=== PATIENT | male | born 1945 | race Caucasian/White ===

== ENCOUNTER → 2017-05-19 | Outpatient (CLI) | payer OTHER ==
[2016-06-09 23:53] VITALS: BP 128/67
[~2017-05-19] MED LIST: NS 100 ML IV 100 ML IV ONE
[2017-05-19 08:21] LABS: CREATININE 1.6 mg/dL (0.70-1.30)
--- NOTE | 2017-05-22 10:43 | CT ---
HISTORY: Atrial fibrillation. Pain to surgical site from 1 year above the navel area. Prior surgery f or ulcer 1 year ago Study: CT abdomen and pelvis with IV and oral contrast Comparison: 06/09/2016 Technique: Multiple axial images of the abdomen and pelvis were obtained from the lung bases to the pubic symphy sis during the administration of IV contrast. Oral contrast agents were administered. Coronal and sa gittal images are also reviewed. Dose reduction techniques utilized automatic exposure control. Findings: There is a tiny amount of left pleural effusion present. No consolidation is seen. The heart is enlar ged with artifacts present from pacemaker leads. There is a wide rectus diastases present in the uppe r abdomen which is seen to contain a portion of the transverse colon. This constitutes a moderately l arge ventral hernia. No abscess or fluid collection is seen in the abdomen or pelvic regions. The lisa er, spleen, pancreas, kidneys, and adrenal glands are unremarkable in their CT appearance. The gallbl adder is unremarkable in its CT appearance. There is a very small intrarenal abdominal aortic aneurys m which measures about 2.8 cm in maximum diameter. This extends for a length of about 3.3 cm. No evid ence of leakage is seen. No significant mesenteric lymphadenopathy or stranding can be observed. No free fluid or free air is seen within the abdomen. No bowel wall thickening or bowel dilatation is present. The colon is unremarkable. Specifically, there is no diverticulosis noted within the sigmo id colon. The urinary bladder wall appears thickened. No mass or stone is seen. There is degenerativ e disc disease present at multiple lower thoracic and upper lumbar regions. IMPRESSION: Large upper midline ventral hernia containing a portion of the transverse colon. Measures about 8 cm in diameter. No obstruction is seen. No mass, adenopathy or fluid is identified. Reported By:
== END | disposition home or self-care (01) ==
LOC: RAD 07:34
PROVIDERS: ATTEND Internal Medicine
DX: R10.84 Generalized abdominal pain (principal); K43.9 Ventral hernia without obstruction or gangrene
CPT/HCPCS: 36415; 74160; 82565; 84520; A4222

== ENCOUNTER → 2017-08-21 | Outpatient (CLI) | payer OTHER ==
[2016-06-09 23:53] VITALS: BP 128/67
--- NOTE | 2017-08-21 17:00 | VAS ---
Examination: Right leg DVT study Clinical History: Right leg pain and swelling. Technique: Duplex Doppler ultrasound utilizing yo scale imaging and spectral analysis with color/du plex imaging was used to evaluate the deep venous system of the right leg from the calf to the groin. Comparison: None available. Findings: There is normal flow, compressibility and augmentation of the common femoral-, superficial femoral-, and popliteal veins. There is no sonographic evidence of a deep venous thrombosis in the right leg. Impression: 1. There is no sonographic evidence of a deep venous thrombosis in the right leg. Reported By:
== END ==
LOC: RAD 15:59
PROVIDERS: ATTEND Internal Medicine
DX: R60.0 Localized edema (principal); M79.604 Pain in right leg; Z86.711 Personal history of pulmonary embolism
CPT/HCPCS: 93971

== ENCOUNTER 2017-11-16 15:11 | Emergency (ER) | payer OTHER ==
[2017-11-16 15:15] VITALS: BP 135/78; BMI 29.2
--- NOTE | 2017-11-16 15:37 | DR.ABDMALE ---
HPI - Time seen Time seen: 16:37 - PCP Primary Care Physician: VALENTIN - HPI comment HPI Comment: PAIN ASSOCIATED WITH NAUSEA. BM TODAY. NO FEVER OR DYSURIA. HAVE HAD SEVERAL ABDOMINAL SURGERY IN THE PAST. - Complaint Chief Complaint Doctors Comments: INCREASING ABDOMINAL PAIN TIMES ONE WEEK. Chief Complaint:: PT C/O ABD PAIN THAT HAS BEEN GOING ON FOR A FEW WEEKS. PT STATES HE HAS A EXTENSIVE HISTORY OF ABD PROBLEMS AND SURGERIES. PT HAS FALLEN WITHIN THE PAST WEEK. - Reviewed Nurses Notes Review: Yes - Mode of arrival Mode of Arrival: Ambulatory - Timing Onset of Chief Complaint: 11/09/17 Came on: Gradually - Duration Duration: Constant Duration: Days - Location Location: Diffuse - Severity Severity: Moderate - Quality Quality: Cramping - Context Onset: Gradually History of: Abdominal surgery, Bowel obstruction, Similar pain (dx) - Modifying factors Worsening Factors: Nothing Improving Factors: Nothing - Associated signs and symptoms Associated Signs and Symptoms: Nausea PMH - PMH Past Medical History: Yes Past Medical History: Anxiety, Coronary Artery Disease, Diabetes, Dyslipidemia, GERD, Hypertension, Hypothyroidism Past Surgical History: Yes Surgical History: Abdominal Surgery, Other - Family History History of Family Medical Conditions: Yes Family Medical History: Hypertension - Social History Does any household member use tobacco: No Alcohol Use: None Do you use any recreational Drugs:: No Lives With: Family Lives Where: Home - infectious screening In the last 2 months have you had wt loss of >10#?: NO Have you had fever, night sweats or hemotysis?: No Have you traveled outside the country in the last 6 months?: No Isolation: Standard ROS - Review of Systems Constitutional: No Symptoms Reported Eyes: No Symptoms Reported ENTM: No Symptoms Reported Respiratoy: No Symptoms Reported Cardiovascular: No Symptoms Reported Gastrointestinal/Abdominal: Abdominal Pain, Nausea Genitourinary: No Symptoms Reported. negative: Dysuria, Frequency, Hematuria Neurological: No Symptoms Reported Musculoskeletal: Back Pain Integumentary: No Symptoms Reported Hematologic/Lymphatic: No Symptoms Reported Endocrine: No Symptoms Reported All Other Systems: Reviewed and Negative PE - Vital Signs Vital Signs: Temp Pulse Resp BP BP Pulse Ox 11/16/17 15:12 98.3 F 61 20 135/78 94 L 06/09/16 23:52 128/67 128/67 - General Limitations: No Limitations General Appearance: Alert - Head Head Exam: Normal Inspection - Eyes Eye exam: Normal Appearance - ENT ENT Exam: Normal External Ear Exam - Neck Neck Exam: Trachea Midline - Chest Chest Inspection: Symmetric Chest Wall Rise - Respiratory Respiratory Exam: Normal Lung Sounds Bilat Respiratory Exam: Bilateral Clear to Auscultation - Cardiovascular Cardiovascular Exam: Regular Rate, Normal Rhythm, Normal Heart Sounds - Abdominal Exam Abdominal Exam: Normal Bowel Sounds, Soft, Tenderness Abdominal Tenderness: Diffuse, Moderate - Rectal Rectal Exam: Deferred - Back Back Exam: Normal Inspection - Extremeties Extremities Exam: Normal Inspection - Exam: Male: Deferred - Neurologic Neurological Exam: Alert, Oriented X3. negative: Motor Sensory Deficit - Psychiatric Psychiatric Exam: Normal Affect, Normal Mood - Skin Skin Exam: Normal Color MDM - Additional Information Obtained From Additional information provided by: Family - Differential Diagnosis Differential Diagnosis: Bowel Obstruction, Diverticular disease, Gastritus/PUD, Pancreatitis, Urinary tract infection, Urolithiasis Course - Treatment Treatment: SEE ORDERS. - Education/Counseling Education/Counseling: Patient, Family, Education Educated On: Diagnosis, Needs for Follow Up ROR - Labs Reviewed Laboratory Results Reviewed?: Yes Result Diagrams: 11/16/17 15:55 11/16/17 15:55 Laboratory: WBC 7.0 X10^3/uL (3.6-10.0) 11/16/17 15:55 RBC 4.19 X10^6/uL (4.7-6.0) L 11/16/17 15:55 Hgb 12.1 g/dL (13.5-18.0) L 11/16/17 15:55 Hct 35.6 % (42.0-54.0) L 11/16/17 15:55 MCV 85.0 fL (80.0-100.0) 11/16/17 15:55 MCH 28.8 pg (27.0-34.0) 11/16/17 15:55 MCHC 33.9 g/dL (33.0-35.0) 11/16/17 15:55 RDW 14.4 % (11.6-16.5) 11/16/17 15:55 Plt Count 170 X10^3/uL (150.0-450.0) 11/16/17 15:55 MPV 8.8 fL (7.4-11.0) 11/16/17 15:55 Neut % (Auto) 57.0 % (42.0-75.0) 11/16/17 15:55 Lymph % (Auto) 30.0 % (21.0-51.0) 11/16/17 15:55 [place] % (Auto) 8.7 % (0.0-13.0) 11/16/17 15:55 Eos % (Auto) 3.0 % (0.9-2.9) H 11/16/17 15:55 Baso % (Auto) 1.3 % (0.2-1.0) H 11/16/17 15:55 Neut # (Auto) 4.0 x10^3/uL (2.2-4.8) 11/16/17 15:55 Lymph # (Auto) 2.1 X10^3/uL (1.3-2.9) 11/16/17 15:55 [place] # (Auto) 0.6 x10^3/uL (0.3-0.8) 11/16/17 15:55 Eos # (Auto) 0.2 x10^3/uL (0.0-0.2) 11/16/17 15:55 Baso # (Auto) 0.1 X10^3/uL (0.0-0.1) 11/16/17 15:55 Absolute Nucleated RBC 0.0 /100WBC 11/16/17 15:55 Sodium 139 mmol/L (136-145) 11/16/17 15:55 Corrected Sodium TNP 11/16/17 15:55 Potassium 4.6 mmol/L (3.5-5.1) 11/16/17 15:55 Chloride 104 mmol/L (98-107) 11/16/17 15:55 Carbon Dioxide 29.3 mmol/L (21-32) 11/16/17 15:55 BUN 45 mg/dL (7-18) H 11/16/17 15:55 Creatinine 1.83 mg/dL (0.70-1.30) H 11/16/17 15:55 Est GFR (MDRD) Af Amer 47 (>60) L 11/16/17 15:55 Est GFR (MDRD) Non-Af 39 (>60) L 11/16/17 15:55 Glucose 88 mg/dL (65-99) 11/16/17 15:55 Calcium 8.7 mg/dL (8.5-10.1) 11/16/17 15:55 Corrected Calcium TNP 11/16/17 15:55 Total Bilirubin 0.40 mg/dL (0.2-1.0) 11/16/17 15:55 AST 25 Units/L (15-37) 11/16/17 15:55 ALT 25 Units/L (12-78) 11/16/17 15:55 Alkaline Phosphatase 35 Units/L (46-116) L 11/16/17 15:55 Total Protein 7.9 g/dL (6.4-8.2) 11/16/17 15:55 Albumin 4.1 g/dL (3.4-5.0) 11/16/17 15:55 Globulin 3.8 g/dL (2.5-4.5) 11/16/17 15:55 Albumin/Globulin Ratio 1.1 Ratio (1.1-2.1) 11/16/17 15:55 Amylase 54 Units/L (25-115) 11/16/17 15:55 Lipase 175 Units/L (73-393) 11/16/17 15:55 Specimen Type Random urine 11/16/17 16:07 Urine Color Yellow (YELLOW) 11/16/17 16:07 Urine Appearance Clear (CLEAR) 11/16/17 16:07 Urine pH 5.0 (5.0 - 8.0) 11/16/17 16:07 Ur Specific [place] 1.020 (1.000-1.030) 11/16/17 16:07 Urine Protein Negative (NEGATIVE) 11/16/17 16:07 Urine Glucose (UA) Negative (NEGATIVE) 11/16/17 16:07 Urine Ketones Negative (NEGATIVE) 11/16/17 16:07 Urine Occult Blood Negative (NEGATIVE) 11/16/17 16:07 Urine Nitrite Negative (NEGATIVE) 11/16/17 16:07 Urine Bilirubin Negative (NEGATIVE) 11/16/17 16:07 Urine Urobilinogen Normal (NORMAL) 11/16/17 16:07 Ur Leukocyte Esterase Negative (NEGATIVE) 11/16/17 16:07 - XRAY XRAY Interpreted by: Radiologist XRAY Findings: REPORT DISCUSS WITH PATIENT. - Diagnosis Discharge Problem: Abdominal pain Qualifiers: Abdominal location: generalized Qualified Code(s): R10.84 - Generalized abdominal pain - Discharge Plan Disposition: 01 HOME, SELF-CARE Condition: Stable - Follow ups/Referrals Follow ups/Referrals: Mariela Mackay [Primary Care Provider] - 11/17/17 - Instructions Instructions: Abdominal Pain, Adult, [id number] Additional Instructions: RETURN TO ED IF WORSE.
[2017-11-16 16:04] LABS: BASOPHILS # (AUTO) 0.1 X10^3/uL (0.0-0.1); BASOPHILS % (AUTO) 1.3 % (0.2-1.0); EOSINOPHILS # (AUTO) 0.2 x10^3/uL (0.0-0.2); HEMATOCRIT 35.6 % (42.0-54.0); HEMOGLOBIN 12.1 g/dL (13.5-18.0); LYMPHOCYTES # (AUTO) 2.1 X10^3/uL (1.3-2.9); MEAN CORPUSCULAR HEMOGLOBIN 28.8 pg (27.0-34.0); MEAN CORPUSCULAR HGB CONC 33.9 g/dL (33.0-35.0); MEAN PLATELET VOLUME 8.8 fL (7.4-11.0); MONOCYTES # (AUTO) 0.6 x10^3/uL (0.3-0.8); MONOCYTES % (AUTO) 8.7 % (0.0-13.0); PLATELET COUNT 170 X10^3/uL (150.0-450.0); RED BLOOD COUNT 4.19 X10^6/uL (4.7-6.0); RED CELL DISTRIBUTION WIDTH 14.4 % (11.6-16.5)
[2017-11-16 16:14] LABS: BILIRUBIN,URINE NEGATIVE (NEGATIVE); BLOOD/HEMOGLOBIN,URINE NEGATIVE (NEGATIVE); GLUCOSE, URINE NEGATIVE (NEGATIVE); KETONES,URINE NEGATIVE (NEGATIVE); LEUKOCYTE ESTERASE ,URINE NEGATIVE (NEGATIVE); NITRITES,URINE NEGATIVE (NEGATIVE); PROTEIN,URINE NEGATIVE (NEGATIVE); UROBILINOGEN,URINE NORMAL (NORMAL)
[2017-11-16 16:15] LABS: ALANINE AMINOTRANSFERASE 25 Units/L (12-78); ALBUMIN 4.1 g/dL (3.4-5.0); ALKALINE PHOSPHATASE 35 Units/L (46-116); AMYLASE 54 Units/L (25-115); ASPARTATE AMINO TRANSFERASE 25 Units/L (15-37); BLOOD UREA NITROGEN 45 mg/dL (7-18); CALCIUM 8.7 mg/dL (8.5-10.1); CARBON DIOXIDE 29.3 mmol/L (21-32); CHLORIDE 104 mmol/L (98-107); CREATININE 1.83 mg/dL (0.70-1.30); LIPASE 175 Units/L (73-393); SODIUM 139 mmol/L (136-145); TOTAL PROTEIN 7.9 g/dL (6.4-8.2); eGFR BLACK RACES 47 (>60); eGFR NON BLACK RACES 39 (>60)
[2017-11-16 16:16] LABS: APPEARANCE,URINE CLEAR (CLEAR); COLOR,URINE YELLOW (YELLOW)
--- NOTE | 2017-11-16 16:34 | CT ---
CT ABDOMEN AND PELVIS WITHOUT CONTRAST CLINICAL HISTORY: 72-year-old male with abdominal pain COMPARISON: CT abdomen and pelvis 05/19/2017. TECHNIQUE: Multiple contiguous computed tomographic axial images of the abdomen and pelvis were [place] without the use of oral or intravenous contrast. Images were reformatted in the coronal and sagit neel planes. FINDINGS: Trace left effusion with left basilar subsegmental dependent atelectasis. No pneumothorax, mass or no dule. Stable COPD with paraseptal emphysematous change. Stable cardiomegaly, AICD and atherosclerotic calcification of the coronary vessels. Stable hepatomegaly with spleen and pancreas unremarkable. Trace sludge within an otherwise normal ap pearing gallbladder. Adrenal glands are unremarkable. Stable moderate perinephric stranding with mild renal atrophy. There are no nephroureteral stones or perinephric fluid collections. There is no evidence of hydroureteron ephrosis and the ureters run in an unobstructed course to a well distended urinary bladder. The prostate, seminal vesicles, and external genitalia are within normal limits. The appendix is normal in appearance. The bowel is without obstruction or inflammation and there is no free fluid or free air within the peritoneal cavity. Diverticulosis without CT evidence of diverti culitis. There are no pathologically enlarged lymph nodes in the abdomen or pelvis. Severe atherosclerotic calcification of the aorta and its branches. Interval repair ventral hernia with mesh with abdominal tacks present. The osseous structures are intact without fracture or malalignment. Stable multilevel degenerative ch jailene of the imaged spine. IMPRESSION: 1. Stable hepatomegaly. 2. Normal appendix. 3. Diverticulosis without CT evidence of diverticulitis. 4. Gallbladder sludge without CT evidence of cholecystitis. 5. No acute intra-abdominal or intrapelvic process. Reported By:
== END 2017-11-16 16:52 | disposition home or self-care (01) ==
LOC: ER 15:13
DX: R10.84 Generalized abdominal pain (principal)
CPT/HCPCS: 36415; 74176; 80053; 81003; 82150; 83690; 85025; 99283; 99284

== ENCOUNTER → 2017-12-06 | Outpatient (CLI) | payer OTHER ==
[2017-11-16 15:15] VITALS: BP 135/78
--- NOTE | 2017-12-06 12:45 | RAD ---
HISTORY: Status post wrist P did falls with right shoulder pain Study: Three views right shoulder Comparison: None Findings: There is mild AC joint DJD. The glenohumeral articulation is normal in its appearance. No acute cor tical disruption or dislocation can be identified. The visualized portions of the scapula are unrema rkable. In addition, the visualized portions of the thorax appear normal. IMPRESSION: Mild AC joint DJD without definite acute bony radiographic abnormality. Reported By:
--- NOTE | 2017-12-06 13:50 | RAD ---
HISTORY: Repeated falls. Left lower rib pain. Study: PA chest with rib details: Four views Comparison: None Findings: Mild chronic interstitial scarring is noted. Mild cardiomegaly is noted. Electronic cardiac device is present on the left. Its leads appear to be in appropriate position. Abandoned leads are also pr esent. No evidence of pneumothorax is noted. Evidence for previous abdominal wall hernia surgery is noted. Examination of the rib details demonstrates what appears to be a remote rib fracture involving the ri ght 8th rib anteriorly. I see no definite acute bony abnormalities. IMPRESSION: 1. Mild cardiomegaly. 2. Evidence for remote rib fractures. 3. I see no definite acute rib fracture. 4. No evidence of pneumothorax is noted. 5. Please note that costal chondral fractures and chondral fractures may not be seen by plain film ra diographs. Reported By:
== END ==
LOC: RAD 12:03
PROVIDERS: ATTEND Nurse Practitioner Family
DX: M25.511 Pain in right shoulder (principal); M54.6 Pain in thoracic spine; M19.011 Primary osteoarthritis, right shoulder; R29.6 Repeated falls
CPT/HCPCS: 71111; 73030

== ENCOUNTER → 2017-12-07 | Outpatient (CLI) | payer OTHER ==
[2017-11-16 15:15] VITALS: BP 135/78
--- NOTE | 2017-12-08 07:12 | CT ---
HISTORY: Injury, fall, right shoulder and left lower rib pain Study: CT chest without contrast Comparison: Plain films 12/06/2017 Technique: Axial noncontrast images with coronal and sagittal reformats. Dose reduction procedures we re used with mA/kv adjusted for body size. The examination is limited due to the lack of intravenous contrast. Findings: Examination of the mediastinum demonstrated no evidence for mediastinal hematoma or mass. Calcific at herosclerotic changes present in a nondilated thoracic aorta. Evaluation of the aorta for trauma is l imited due to the lack of intravenous contrast. No enlarged mediastinal or hilar adenopathy is identi fied. No pleural effusions are present. There is a nondisplaced cortical fracture of the left lateral 6th rib. The remainder the ribs are intact as is the sternum. Those portions of the upper abdominal organs visualized are within normal limits to the limitations of an unenhanced examination. There is a compression fracture of T10, age indeterminate. Examination of the lung garcia demonstrated no sign ificant nodules, masses, alveolar infiltrates, areas of consolidation, peribronchial thickening, or b ronchiectasis. IMPRESSION: Lungs clear Compression fracture T10 age indeterminate Nondisplaced cortical fracture left lateral 6th rib Reported By:
== END | disposition home or self-care (01) | DRG 303 ==
LOC: RAD 14:40
PROVIDERS: ATTEND Nurse Practitioner Family
DX: R93.8 Abnormal findings on diagnostic imaging of other specified body structures (principal); M48.54XA Collapsed vertebra, not elsewhere classified, thoracic region, initial encounter for fracture
CPT/HCPCS: 71250

== ENCOUNTER 2018-02-15 12:31 | Observation (INO) ==
--- NOTE | 2018-02-15 14:19 | RAD ---
HISTORY: Shortness of breath, chest pain Study: Single view chest Comparison: 12/07/2017 Findings: Single portable view is submitted. Stable left chest wall pacemaker. No infiltrate, effusion or pneum othorax identified. Cardiac silhouette is borderline enlarged. The soft tissues are unremarkable. IMPRESSION: 1. No acute cardiopulmonary abnormality. Reported By:
[2018-02-15 14:40] LABS: BASOPHILS % (AUTO) 0.3 % (0.2-1.0); EOSINOPHILS # (AUTO) 0.2 x10^3/uL (0.0-0.2); EOSINOPHILS % (AUTO) 2.7 % (0.9-2.9); HEMATOCRIT 36.6 % (42.0-54.0); HEMOGLOBIN 12.4 g/dL (13.5-18.0); LYMPHOCYTES # (AUTO) 1.9 X10^3/uL (1.3-2.9); LYMPHOCYTES % (AUTO) 26.9 % (21.0-51.0); MEAN CORPUSCULAR HEMOGLOBIN 29.2 pg (27.0-34.0); MEAN CORPUSCULAR HGB CONC 33.9 g/dL (33.0-35.0); MEAN PLATELET VOLUME 8.7 fL (7.4-11.0); MONOCYTES # (AUTO) 0.5 x10^3/uL (0.3-0.8); MONOCYTES % (AUTO) 7.3 % (0.0-13.0); NEUTROPHILS # (AUTO) 4.4 x10^3/uL (2.2-4.8); NEUTROPHILS % (AUTO) 62.8 % (42.0-75.0); PLATELET COUNT 196 X10^3/uL (150.0-450.0); RED BLOOD COUNT 4.26 X10^6/uL (4.7-6.0); RED CELL DISTRIBUTION WIDTH 15.6 % (11.6-16.5); WHITE BLOOD COUNT 7.1 X10^3/uL (3.6-10.0)
[2018-02-15 14:40] LABS: BILIRUBIN,URINE NEGATIVE (NEGATIVE); BLOOD/HEMOGLOBIN,URINE 1+ (NEGATIVE); GLUCOSE, URINE NEGATIVE (NEGATIVE); KETONES,URINE NEGATIVE (NEGATIVE); LEUKOCYTE ESTERASE ,URINE 2+ (NEGATIVE); NITRITES,URINE NEGATIVE (NEGATIVE); PROTEIN,URINE 1+ (NEGATIVE); UROBILINOGEN,URINE 1+ (NORMAL)
[2018-02-15] MEDS: PROTONIX INJ 40 MG VIAL IVP SCH ×2 (14:53→23:24)
[2018-02-15] MEDS: PEPCID 20 MG IV PREMIX* 20 MG/50 ML BAG IV SCH ×2 (14:53→23:24)
[2018-02-15] MEDS: NS 1000 ML 1,000 ML IV SCH (14:53)
[2018-02-15 15:06] LABS: ALANINE AMINOTRANSFERASE 35 Units/L (12-78); ALKALINE PHOSPHATASE 34 Units/L (46-116); ASPARTATE AMINO TRANSFERASE 36 Units/L (15-37); BLOOD UREA NITROGEN 31 mg/dL (7-18); CALCIUM 8.6 mg/dL (8.5-10.1); CHLORIDE 105 mmol/L (98-107); CKMB % 0.9 % (<4); COR NA(FOR HYPERGLY) 141 mmol/L (136-145); CREATINE KINASE 351 Units/L (39-308); CREATINE KINASE MB 3.2 ng/mL (0-4.0); MAGNESIUM 1.8 mg/dL (1.7-2.9); SODIUM 140 mmol/L (136-145); TOTAL PROTEIN 7.5 g/dL (6.4-8.2); TROPONIN I < 0.02 ng/mL (0-1.5); eGFR NON BLACK RACES 37 (>60)
[2018-02-15 15:41] LABS: AMORPHOUS SEDIMENT,UR 1+ /HPF (NEGATIVE); APPEARANCE,URINE SLIGHTLY HAZY (CLEAR); BACTERIA,URINE TRACE /HPF (NEGATIVE); COLOR,URINE YELLOW (YELLOW); SQUAMOUS EPITHELIAL CELL,UR FEW /HPF (NEGATIVE)
[2018-02-15 15:47] VITALS: BMI 30.5
[2018-02-15 18:45] LABS: CKMB % 0.8 % (<4); CREATINE KINASE 321 Units/L (39-308); CREATINE KINASE MB 2.7 ng/mL (0-4.0); TROPONIN I < 0.02 ng/mL (0-1.5)
--- NOTE | 2018-02-15 20:05 | CT ---
CT HEAD WITHOUT CONTRAST CLINICAL HISTORY: 72-year-old male with weakness, dizziness and headache. COMPARISON: None. TECHNIQUE: Multiple, non-contrasted axial CT images were obtained from the skull base to the cranial vertex. Coronal and sagittal reformats were performed. FINDINGS: There are no abnormal intra- or extra-axial fluid collections, midline shift, or mass effec t. Witt-white differentiation is normal. Global cortical involutional changes are present that are ad vanced for the patient's stated age. The ventricular system is enlarged but commensurate with the deg ree of sulcal prominence. Chronic lacunar infarctions bilateral basal ganglia. Severe periventricular and supraventricular white matter hypodensity is present that is nonspecific in appearance, but most likely to represent microvascular ischemic changes. Atherosclerotic vascular calcification is presen t within the carotid siphons and distal vertebral arteries. The imaged paranasal sinuses, mastoid air cells, and tympanic spaces are clear. Bilateral lens implan ts. IMPRESSION: 1. No definite evidence of an acute intracranial process. If clinical concern persists for acute stro ke and it would alter patient management, consider MRI/MRA brain. 2. Chronic lacunar infarctions bilateral basal ganglia. 3. Severe microvascular white matter ischemic changes, with associated volume loss. Reported By:
[2018-02-15 23:07] LABS: CKMB % 0.7 % (<4); CREATINE KINASE 317 Units/L (39-308); CREATINE KINASE MB 2.3 ng/mL (0-4.0); TROPONIN I < 0.02 ng/mL (0-1.5)
[2018-02-15] MEDS: KLONOPIN TAB 0.5 MG PO SCH (23:24)
[2018-02-15] MEDS: LIPITOR TAB 40 MG PO SCH (23:24)
[2018-02-15] MEDS: LOPRESSOR TAB 50 MG PO SCH (23:24)
[2018-02-15] MEDS: ZOLOFT PO SCH (23:25)
[2018-02-15] MEDS: NEURONTIN CAP 300 MG PO SCH (23:25)
[2018-02-15] MEDS: TRICOR TAB 160 MG PO SCH (23:25)
[2018-02-15] MEDS: COUMADIN TAB 4 MG PO SCH (23:25)
[2018-02-16 05:26] LABS: BASOPHILS # (AUTO) 0.1 X10^3/uL (0.0-0.1); BASOPHILS % (AUTO) 2.1 % (0.2-1.0); EOSINOPHILS # (AUTO) 0.2 x10^3/uL (0.0-0.2); EOSINOPHILS % (AUTO) 3.4 % (0.9-2.9); HEMATOCRIT 34.6 % (42.0-54.0); MEAN CORPUSCULAR HEMOGLOBIN 29.6 pg (27.0-34.0); MEAN CORPUSCULAR HGB CONC 34.6 g/dL (33.0-35.0); MEAN CORPUSCULAR VOLUME 85.4 fL (80.0-100.0); MEAN PLATELET VOLUME 8.9 fL (7.4-11.0); MONOCYTES # (AUTO) 0.6 x10^3/uL (0.3-0.8); MONOCYTES % (AUTO) 9.8 % (0.0-13.0); NEUTROPHILS # (AUTO) 3.5 x10^3/uL (2.2-4.8); NEUTROPHILS % (AUTO) 53.7 % (42.0-75.0); PLATELET COUNT 177 X10^3/uL (150.0-450.0); RED BLOOD COUNT 4.05 X10^6/uL (4.7-6.0); RED CELL DISTRIBUTION WIDTH 15.4 % (11.6-16.5); WHITE BLOOD COUNT 6.5 X10^3/uL (3.6-10.0)
[2018-02-16 05:48] LABS: ALANINE AMINOTRANSFERASE 31 Units/L (12-78); ALBUMIN 3.5 g/dL (3.4-5.0); ALKALINE PHOSPHATASE 29 Units/L (46-116); ASPARTATE AMINO TRANSFERASE 31 Units/L (15-37); BLOOD UREA NITROGEN 27 mg/dL (7-18); CALCIUM 8.3 mg/dL (8.5-10.1); CHLORIDE 105 mmol/L (98-107); CKMB % 0.9 % (<4); CREATINE KINASE 243 Units/L (39-308); CREATINE KINASE MB 2.1 ng/mL (0-4.0); CREATININE 1.64 mg/dL (0.70-1.30); SODIUM 140 mmol/L (136-145); TOTAL PROTEIN 6.9 g/dL (6.4-8.2); TROPONIN I < 0.02 ng/mL (0-1.5); eGFR NON BLACK RACES 44 (>60)
--- NOTE | 2018-02-16 07:59 | DR.UPDATE ---
H&P Update History and Physical Update: WAS SEEN IN THE OFFICE TODAY. A H&P WAS COMPLETED PRIOR TO ADMISSION. PATIENT HAS BEEN SEEN AND EXAMINED WITH NO CHANGES NOTED TO H&P. Changes noted: NO Yes with the following:
[2018-02-16] MEDS: PEPCID 20 MG IV PREMIX* 20 MG/50 ML BAG IV SCH ×2 (09:07→20:14)
[2018-02-16] MEDS: PROTONIX INJ 40 MG VIAL IVP SCH ×2 (09:07→20:14)
[2018-02-16] MEDS: KLONOPIN TAB 0.5 MG PO SCH ×2 (09:08→20:13)
[2018-02-16] MEDS: LOPRESSOR TAB 50 MG PO SCH ×2 (09:08→20:14)
[2018-02-16] MEDS: CORDARONE TAB 200 MG PO SCH (09:08)
[2018-02-16] MEDS: ZESTRIL TAB 10 MG PO SCH (09:08)
[2018-02-16] MEDS: PROTONIX TAB 40 MG PO SCH (09:09)
[2018-02-16] MEDS: SINGULAIR TAB 10 MG PO SCH (09:09)
[2018-02-16] MEDS: COUMADIN TAB 4 MG PO SCH (20:12)
[2018-02-16] MEDS: LIPITOR TAB 40 MG PO SCH (20:13)
[2018-02-16] MEDS: TRICOR TAB 160 MG PO SCH (20:14)
[2018-02-16] MEDS: NEURONTIN CAP 300 MG PO SCH (20:14)
[2018-02-16] MEDS: ZOLOFT PO SCH (20:15)
[2018-02-17] MEDS: NS 1000 ML 1,000 ML IV SCH (05:04)
[2018-02-17 05:24] LABS: BASOPHILS # (AUTO) 0.1 X10^3/uL (0.0-0.1); BASOPHILS % (AUTO) 1.6 % (0.2-1.0); EOSINOPHILS # (AUTO) 0.2 x10^3/uL (0.0-0.2); EOSINOPHILS % (AUTO) 3.6 % (0.9-2.9); HEMATOCRIT 36.2 % (42.0-54.0); HEMOGLOBIN 12.5 g/dL (13.5-18.0); LYMPHOCYTES # (AUTO) 1.7 X10^3/uL (1.3-2.9); LYMPHOCYTES % (AUTO) 28.2 % (21.0-51.0); MEAN CORPUSCULAR HEMOGLOBIN 29.4 pg (27.0-34.0); MEAN CORPUSCULAR HGB CONC 34.5 g/dL (33.0-35.0); MEAN CORPUSCULAR VOLUME 85.3 fL (80.0-100.0); MEAN PLATELET VOLUME 8.9 fL (7.4-11.0); MONOCYTES # (AUTO) 0.5 x10^3/uL (0.3-0.8); MONOCYTES % (AUTO) 8.5 % (0.0-13.0); NEUTROPHILS # (AUTO) 3.5 x10^3/uL (2.2-4.8); NEUTROPHILS % (AUTO) 58.1 % (42.0-75.0); PLATELET COUNT 165 X10^3/uL (150.0-450.0); RED BLOOD COUNT 4.25 X10^6/uL (4.7-6.0); RED CELL DISTRIBUTION WIDTH 15.4 % (11.6-16.5)
[2018-02-17 05:37] LABS: ALANINE AMINOTRANSFERASE 31 Units/L (12-78); ALBUMIN 3.5 g/dL (3.4-5.0); ALKALINE PHOSPHATASE 35 Units/L (46-116); ASPARTATE AMINO TRANSFERASE 32 Units/L (15-37); BLOOD UREA NITROGEN 22 mg/dL (7-18); CALCIUM 8.4 mg/dL (8.5-10.1); CARBON DIOXIDE 27.2 mmol/L (21-32); CHLORIDE 105 mmol/L (98-107); CREATININE 1.56 mg/dL (0.70-1.30); SODIUM 140 mmol/L (136-145); eGFR NON BLACK RACES 47 (>60)
[2018-02-17] MEDS: PEPCID 20 MG IV PREMIX* 20 MG/50 ML BAG IV SCH (09:32)
[2018-02-17] MEDS: KLONOPIN TAB 0.5 MG PO SCH (09:32)
[2018-02-17] MEDS: SINGULAIR TAB 10 MG PO SCH (09:33)
[2018-02-17] MEDS: LOPRESSOR TAB 50 MG PO SCH (09:33)
[2018-02-17] MEDS: ZESTRIL TAB 10 MG PO SCH (09:34)
[2018-02-17] MEDS: PROTONIX TAB 40 MG PO SCH (09:34)
[2018-02-17] MEDS: PROTONIX INJ 40 MG VIAL IVP SCH (09:34)
[2018-02-17] MEDS: CORDARONE TAB 200 MG PO SCH (09:39)
[2018-02-17 12:04] VITALS: BP 142/69
--- NOTE | 2018-03-29 23:07 | PCM.PROG ---
Progress Note - Progress Note for Day of Date of Exam: 02/16/18 - Subjective Subjective: WAS ADMITTED FOR GENERALIZED WEAKNESS, AMS, CHEST PAIN, AND DIZZINESS. A BRAIN CT WAS OBTAINED ON ADMISSION AND REVEALED: No definite evidence of an acute intracranial process. If clinical concern persists for acute stroke and it would alter patient management, consider MRI/MRA brain. Chronic lacunar infarctions bilateral basal ganglia. Severe microvascular white matter ischemic changes, with associated volume loss. TODAY, HE IS ALERT AND ORIENTED, LYING IN BED ON MORNING ROUNDS. HE CONTINUES WITH COMPLAINTS OF GENERALIZED WEAKNESS. HE DENIES CHEST PAIN THIS MORNING. HIS VITALS THIS MORNING ARE 97.8-70-20-96%-165/87. HIS BUN/CREATININE REMAIN ELEVATED AT 27/ 1.64. HIS CREATINE KINASE HAS BEEN FOLLOWS: 351, 321, 317. TODAY, WE WILL CONTINUE WITH IV HYDRATION AND CURRENT PLAN OF CARE. OTHERWISE, WE WILL FOLLOW UP WITH AM LABS AND CONTINUE TO MONITOR. - Past Medical Family Social History Past Med/Fam/Surg Hx: No changes since H&P Allergies: Allergies No Known Drug Allergies Allergy (Verified 11/16/17 15:12) - Review of Systems ROS: No change since H&P - Vital Signs and I&O's Vital Signs: Temperature 98.1 F Pulse Rate [Right Brachial] 69 Pulse Rate [Left Brachial] 70 Respiratory Rate 20 Blood Pressure [Right Arm] 142/69 Blood Pressure 135/78 O2 Sat by Pulse Oximetry 96 - Physical Exam Oriented: Normal Eyes: Normal Ear: Normal Nose: Normal Throat: Normal Respiratory: Normal Cardiovascular: Normal : Normal Auscultation: Bowel Sounds: Normal Palpation: Normal Tenderness: Normal Skin: Normal Musculoskeletal: Normal Psychiatric: Normal Mood Description: Calm Affect: Normal Speech Pattern: Clear, Appropriate - Laboratory and Diagnostics Result Diagrams: 02/17/18 04:58 02/17/18 04:58 Labs: Laboratory WBC 6.0 X10^3/uL (3.6-10.0) 02/17/18 04:58 RBC 4.25 X10^6/uL (4.7-6.0) L 02/17/18 04:58 Hgb 12.5 g/dL (13.5-18.0) L 02/17/18 04:58 Hct 36.2 % (42.0-54.0) L 02/17/18 04:58 MCV 85.3 fL (80.0-100.0) 02/17/18 04:58 MCH 29.4 pg (27.0-34.0) 02/17/18 04:58 MCHC 34.5 g/dL (33.0-35.0) 02/17/18 04:58 RDW 15.4 % (11.6-16.5) 02/17/18 04:58 Plt Count 165 X10^3/uL (150.0-450.0) 02/17/18 04:58 MPV 8.9 fL (7.4-11.0) 02/17/18 04:58 Neut % (Auto) 58.1 % (42.0-75.0) 02/17/18 04:58 Lymph % (Auto) 28.2 % (21.0-51.0) 02/17/18 04:58 [place] % (Auto) 8.5 % (0.0-13.0) 02/17/18 04:58 Eos % (Auto) 3.6 % (0.9-2.9) H 02/17/18 04:58 Baso % (Auto) 1.6 % (0.2-1.0) H 02/17/18 04:58 Neut # (Auto) 3.5 x10^3/uL (2.2-4.8) 02/17/18 04:58 Lymph # (Auto) 1.7 X10^3/uL (1.3-2.9) 02/17/18 04:58 [place] # (Auto) 0.5 x10^3/uL (0.3-0.8) 02/17/18 04:58 Eos # (Auto) 0.2 x10^3/uL (0.0-0.2) 02/17/18 04:58 Baso # (Auto) 0.1 X10^3/uL (0.0-0.1) 02/17/18 04:58 Absolute Nucleated RBC 0.0 /100WBC 02/17/18 04:58 INR Target Range - 02/17/18 04:58 INR 2.40 (0.8-1.3) H 02/17/18 04:58 APTT 56.8 SECONDS (22.9-36.5) H 02/15/18 14:22 PTT Comment - 02/15/18 14:22 Sodium 140 mmol/L (136-145) 02/17/18 04:58 Corrected Sodium TNP 02/17/18 04:58 Potassium 4.2 mmol/L (3.5-5.1) 02/17/18 04:58 Chloride 105 mmol/L (98-107) 02/17/18 04:58 Carbon Dioxide 27.2 mmol/L (21-32) 02/17/18 04:58 BUN 22 mg/dL (7-18) H 02/17/18 04:58 Creatinine 1.56 mg/dL (0.70-1.30) H 02/17/18 04:58 Est GFR (MDRD) Af Amer 56 (>60) L 02/17/18 04:58 Est GFR (MDRD) Non-Af 47 (>60) L 02/17/18 04:58 Glucose 93 mg/dL (65-99) 02/17/18 04:58 Calcium 8.4 mg/dL (8.5-10.1) L 02/17/18 04:58 Corrected Calcium TNP 02/17/18 04:58 Magnesium 1.8 mg/dL (1.7-2.9) 02/15/18 14:29 Total Bilirubin 0.50 mg/dL (0.2-1.0) 02/17/18 04:58 AST 32 Units/L (15-37) 02/17/18 04:58 ALT 31 Units/L (12-78) 02/17/18 04:58 Alkaline Phosphatase 35 Units/L (46-116) L 02/17/18 04:58 Creatine Kinase 243 Units/L (39-308) 02/16/18 04:50 CK-MB (CK-2) 2.1 ng/mL (0-4.0) 02/16/18 04:50 CK/CKMB % Calc 0.9 % (<4) 02/16/18 04:50 Troponin I < 0.02 ng/mL (0-1.5) 02/16/18 04:50 Total Protein 7.0 g/dL (6.4-8.2) 02/17/18 04:58 Albumin 3.5 g/dL (3.4-5.0) 02/17/18 04:58 Globulin 3.5 g/dL (2.5-4.5) 02/17/18 04:58 Albumin/Globulin Ratio 1.0 Ratio (1.1-2.1) L 02/17/18 04:58 Specimen Type Clean catch urine 02/15/18 14:16 Urine Color Yellow (YELLOW) 02/15/18 14:16 Urine Appearance Slightly hazy (CLEAR) 02/15/18 14:16 Urine pH 5.0 (5.0 - 8.0) 02/15/18 14:16 Ur Specific [place] 1.025 (1.000-1.030) 02/15/18 14:16 Urine Protein 1+ (NEGATIVE) 02/15/18 14:16 Urine Glucose (UA) Negative (NEGATIVE) 02/15/18 14:16 Urine Ketones Negative (NEGATIVE) 02/15/18 14:16 Urine Occult Blood 1+ (NEGATIVE) 02/15/18 14:16 Urine Nitrite Negative (NEGATIVE) 02/15/18 14:16 Urine Bilirubin Negative (NEGATIVE) 02/15/18 14:16 Urine Urobilinogen 1+ (NORMAL) 02/15/18 14:16 Ur Leukocyte Esterase 2+ (NEGATIVE) 02/15/18 14:16 Urine RBC 3-5 /HPF (NONE SEEN) 02/15/18 14:16 Urine WBC 3-5 /HPF (NONE SEEN) 02/15/18 14:16 Ur Squamous Epith Cells Few /HPF (NEGATIVE) 02/15/18 14:16 Amorphous Sediment 1+ /HPF (NEGATIVE) 02/15/18 14:16 Urine Bacteria Trace /HPF (NEGATIVE) 02/15/18 14:16 Ur Culture Indicated? No/not indicated 02/15/18 14:16 H. pylori IgG Antibody Negative (NEGATIVE) 02/15/18 14:29 - Plan (1) Dehydration Status: Acute Plan: NORMAL SALINE, CONTINUE TO MONITOR (2) Rhabdomyolysis Status: Acute Qualifiers: Rhabdomyolysis type: non-traumatic Qualified Code(s): M62.82 - Rhabdomyolysis Plan: NORMAL SALINE, CONTINUE TO MONITOR (3) Generalized weakness Status: Acute
== END 2018-02-17 13:10 | disposition home or self-care (01) ==
LOC: MED/SURG
PROVIDERS: ADMIT Internal Medicine; ATTEND Internal Medicine
DX: R42 Dizziness and giddiness; E11.65 Type 2 diabetes mellitus with hyperglycemia; R53.1 Weakness; R10.31 Right lower quadrant pain; R79.1 Abnormal coagulation profile; R51 Headache; R94.31 Abnormal electrocardiogram [ECG] [EKG]; R10.13 Epigastric pain; R07.89 Other chest pain; R94.4 Abnormal results of kidney function studies
CPT/HCPCS: 36415; 70450; 71010; 71045; 76705; 80053; 81001; 82550; 82553; 83735; 84484; 85025; 85610; 85730; 86677; 93005; 94760; 97162; 97165; A4216; A4222; C9113; S0028; G0378; J7030

== ENCOUNTER 2019-04-07 20:16 | Observation (INO) ==
[2019-04-07 20:33] VITALS: BMI 27.7
--- NOTE | 2019-04-07 21:18 | DR.CP ---
HPI Time Seen Time Seen by Provider: 04/07/19 20:55 PCP Primary Care Physician: VICK HANSON Complaint Chief Complaint Doctor Comments: 73 yo male who presents to the ED for SOB. He states that he has had this all day long and he has become progressively worsened. He states that he has had chest pressure during this time also. It is located on the left side and pressure like. He has PMHx of cardiac arrest in 2016. He states that he had similar pain when he had bowel perforation and cardiac arrest. Chief Complaint:: PT STATED HE HAS HAD PAIN IN HIS LEFT SIDE FOR ABOUT A MONTH, AND IT JUST GOT WORSE TODAY. PT STATED HE IS SHORT OF BREATH ALSO. PT STATED HE STARTED FEELING WORSE AT SUPPER THIS EVENING. Source History Provided: Patient and Significant Other Mode of Arrival Mode of Arrival: Ambulatory Timing Onset of Chief Complaint: 02/26/19 PMH PMH Past Medical History: Yes Past Medical History: Anxiety, Coronary Artery Disease, Diabetes, Dyslipidemia, GERD, Hypertension, Hypothyroidism and [place] Past Surgical History: Yes Surgical History: Abdominal Surgery, Angioplasty/Stents and Other Family History History of Family Medical Conditions: Yes Family Medical History: Hypertension Social History Alcohol Use: None Do you use any recreational Drugs:: No infectious screening Have you traveled outside the country in the last 6 months?: No ROS Review of Systems Constitutional: No Symptoms Reported Eyes: No Symptoms Reported ENTM: No Symptoms Reported Respiratoy: Short of Breath Cardiovascular: Chest Pain Gastrointestinal/Abdominal: Abdominal Pain Genitourinary: No Symptoms Reported Neurological: No Symptoms Reported Musculoskeletal: No Symptoms Reported Integumentary: No Symptoms Reported Endocrine: No Symptoms Reported Psychiatric: No Symptoms Reported All Other Systems: Reviewed and Negative PE Vitals Vitals: Temperature 97.9 F Pulse Rate [Left Brachial] 70 Pulse Rate 70 Respiratory Rate 17 Blood Pressure [Left Arm] 156/91 Blood Pressure [Right Arm] 142/69 Blood Pressure 141/75 O2 Sat by Pulse Oximetry 96 General Limitations: No Limitations General Appearance: Alert and In Distress Head Head Exam: Normal Inspection, Atraumatic and Normocephalic Eyes Eye exam: Normal Appearance and EOMI ENT ENT Exam: Normal Exam Chest Chest Inspection: Normal Inspection Respiratory Respiratory Exam: Normal Lung Sounds Bilat Respiratory Exam: Bilateral: Clear to Auscultation Cardiovascular Cardiovascular Exam: Regular Rate and Normal Rhythm Pulse: Normal Abdominal Exam Abdominal Exam: Normal Bowel Sounds, Soft and Distention Extremities Extremities Exam: Normal Inspection and Full ROM Back Back Exam: Normal Inspection and Full ROM Neurologic Neurological Exam: Alert, Oriented X3, CN II-XII Intact and Normal Gait Psychiatric Psychiatric Exam: Normal Affect and Normal Mood Skin Skin Exam: Warm, Dry, Intact and Normal Color MDM Additional Information Additional Information Obtained From: Family Differential Diagnosis Differential Diagnosis: Angina COURSE Treatment Treatment: pt has significant cardiac hx will need ACS ruleout Reevaluation 1st: Unchanged 2nd: Unchanged 3rd: Unchanged ROR Labs Reviewed Result Diagrams: 04/08/19 03:35 04/08/19 03:35 Laboratory: WBC 6.0 X10^3/uL (3.6-10.0) 04/08/19 03:35 RBC 4.28 X10^6/uL (4.7-6.0) L 04/08/19 03:35 Hgb 12.7 g/dL (13.5-18.0) L 04/08/19 03:35 Hct 36.9 % (42.0-54.0) L 04/08/19 03:35 MCV 86.2 fL (80.0-100.0) 04/08/19 03:35 MCH 29.7 pg (27.0-34.0) 04/08/19 03:35 MCHC 34.5 g/dL (33.0-35.0) 04/08/19 03:35 RDW 13.3 % (11.6-16.5) 04/08/19 03:35 Plt Count 144 X10^3/uL (150.0-450.0) L 04/08/19 03:35 MPV 8.5 fL (7.4-11.0) 04/08/19 03:35 Neut % (Auto) 57.3 % (42.0-75.0) 04/08/19 03:35 Lymph % (Auto) 26.5 % (21.0-51.0) 04/08/19 03:35 Kidder % (Auto) 11.1 % (0.0-13.0) 04/08/19 03:35 Eos % (Auto) 3.4 % (0.9-2.9) H 04/08/19 03:35 Baso % (Auto) 1.7 % (0.2-1.0) H 04/08/19 03:35 Neut # (Auto) 3.4 x10^3/uL (2.2-4.8) 04/08/19 03:35 Lymph # (Auto) 1.6 X10^3/uL (1.3-2.9) 04/08/19 03:35 Kidder # (Auto) 0.7 x10^3/uL (0.3-0.8) 04/08/19 03:35 Eos # (Auto) 0.2 x10^3/uL (0.0-0.2) 04/08/19 03:35 Baso # (Auto) 0.1 X10^3/uL (0.0-0.1) 04/08/19 03:35 Absolute Nucleated RBC 0.0 /100WBC 04/08/19 03:35 Sodium 139 mmol/L (136-145) 04/08/19 03:35 Corrected Sodium 140 mmol/L (136-145) 04/08/19 03:35 Potassium 3.9 mmol/L (3.5-5.1) 04/08/19 03:35 Chloride 104 mmol/L (98-107) 04/08/19 03:35 Carbon Dioxide 27.7 mmol/L (21-32) 04/08/19 03:35 BUN 28 mg/dL (7-18) H 04/08/19 03:35 Creatinine 1.55 mg/dL (0.70-1.30) H 04/08/19 03:35 Est GFR (MDRD) Af Amer 57 (>60) L 04/08/19 03:35 Est GFR (MDRD) Non-Af 47 (>60) L 04/08/19 03:35 Glucose 124 mg/dL (65-99) H 04/08/19 03:35 Calcium 8.3 mg/dL (8.5-10.1) L 04/08/19 03:35 Corrected Calcium TNP 04/08/19 03:35 Total Bilirubin 0.50 mg/dL (0.2-1.0) 04/08/19 03:35 AST 20 Units/L (15-37) 04/08/19 03:35 ALT 23 Units/L (12-78) 04/08/19 03:35 Alkaline Phosphatase 36 Units/L (46-116) L 04/08/19 03:35 Creatine Kinase 77 Units/L (39-308) 04/08/19 03:35 CK-MB (CK-2) < 1.0 ng/mL (0-4.0) 04/08/19 03:35 CK/CKMB % Calc 1.3 % (<4) 04/08/19 03:35 Troponin I < 0.02 ng/mL (0-1.5) 04/08/19 03:35 Total Protein 6.7 g/dL (6.4-8.2) 04/08/19 03:35 Albumin 3.5 g/dL (3.4-5.0) 04/08/19 03:35 Globulin 3.2 g/dL (2.5-4.5) 04/08/19 03:35 Albumin/Globulin Ratio 1.1 Ratio (1.1-2.1) 04/08/19 03:35 Triglycerides 148 mg/dL (0-150) 04/08/19 03:35 Cholesterol 157 mg/dL (0-200) 04/08/19 03:35 LDL Cholesterol, Calc 92 mg/dL (0-100) 04/08/19 03:35 HDL Cholesterol 35 mg/dL (40-60) L 04/08/19 03:35 Cholesterol/HDL Ratio 4.5 (0.0-5.0) 04/08/19 03:35 Lipase 199 Units/L (73-393) 04/07/19 21:42 Opioid Opioid Risk Tool Total: 0 Total Score Risk Category: Low Risk Copyright: [address] predicting aberrant behaviors Diagnosis Discharge Problem: ACS (acute coronary syndrome) Narrative Support Text: Admitted to hospitalist for further workup
[2019-04-07 21:55] LABS: BASOPHILS # (AUTO) 0.1 X10^3/uL (0.0-0.1); BASOPHILS % (AUTO) 1.4 % (0.2-1.0); EOSINOPHILS # (AUTO) 0.2 x10^3/uL (0.0-0.2); EOSINOPHILS % (AUTO) 3.1 % (0.9-2.9); HEMATOCRIT 38.3 % (42.0-54.0); HEMOGLOBIN 13.3 g/dL (13.5-18.0); LYMPHOCYTES # (AUTO) 1.6 X10^3/uL (1.3-2.9); LYMPHOCYTES % (AUTO) 23.2 % (21.0-51.0); MEAN CORPUSCULAR HEMOGLOBIN 29.9 pg (27.0-34.0); MEAN CORPUSCULAR HGB CONC 34.7 g/dL (33.0-35.0); MEAN CORPUSCULAR VOLUME 85.9 fL (80.0-100.0); MEAN PLATELET VOLUME 8.8 fL (7.4-11.0); MONOCYTES # (AUTO) 0.8 x10^3/uL (0.3-0.8); MONOCYTES % (AUTO) 11.5 % (0.0-13.0); NEUTROPHILS # (AUTO) 4.1 x10^3/uL (2.2-4.8); NEUTROPHILS % (AUTO) 60.8 % (42.0-75.0); PLATELET COUNT 151 X10^3/uL (150.0-450.0); RED BLOOD COUNT 4.46 X10^6/uL (4.7-6.0); RED CELL DISTRIBUTION WIDTH 13.3 % (11.6-16.5); WHITE BLOOD COUNT 6.8 X10^3/uL (3.6-10.0)
[2019-04-07 22:01] LABS: ALANINE AMINOTRANSFERASE 26 Units/L (12-78); ALBUMIN 3.9 g/dL (3.4-5.0); ALKALINE PHOSPHATASE 39 Units/L (46-116); ASPARTATE AMINO TRANSFERASE 21 Units/L (15-37); BLOOD UREA NITROGEN 29 mg/dL (7-18); CALCIUM 8.9 mg/dL (8.5-10.1); CARBON DIOXIDE 27.2 mmol/L (21-32); CHLORIDE 104 mmol/L (98-107); COR NA(FOR HYPERGLY) 141 mmol/L (136-145); SODIUM 140 mmol/L (136-145); TOTAL PROTEIN 7.2 g/dL (6.4-8.2); eGFR NON BLACK RACES 39 (>60)
[2019-04-07 23:26] LABS: CKMB % 1.2 % (<4); CREATINE KINASE 86 Units/L (39-308); CREATINE KINASE MB < 1.0 ng/mL (0-4.0); TROPONIN I < 0.02 ng/mL (0-1.5)
--- NOTE | 2019-04-08 00:36 | CT ---
CT abdomen and pelvis without contrast Indication: Lower abdominal pain with dyspnea. Comparison: 07/03/2018 CT Technique: Helical images through the abdomen and pelvis without IV contrast. Coronal and sagittal reformats provided. Oral contrast given Findings: Limited images through lower chest shows lingular scarring. There is cardiomegaly with pacemaker leads. Aortic valve calcifications noted. Left ventricular enlargement noted. Review of bone windows shows no destructive osseous lesion. Abdomen: The liver, spleen, adrenal glands, pancreas, stomach and small bowel appear normal. The appendix is normal. Gallstone seen in the otherwise normal gallbladder. No acute colonic abnormality is seen. Postsurgical change from umbilical hernia repair noted. Aortoiliac plaque noted. The kidneys show no hydroureteronephrosis Pelvis: The urinary bladder and rectum are normal. Prostate gland is normal. Impression: 1. No acute abnormality to explain the patient's pain 2. Gallstone, cardiomegaly, vascular plaque, spine DJD and other findings as above. 3. Prominent prostate gland. Correlate with PSA and physical exam findings. Reported By:
--- NOTE | 2019-04-08 01:16 | RAD ---
Chest AP portable Indication: Lower abdominal pain with dyspnea Comparison: 04/04/2018 Findings: There is cardiomegaly with pacemaker leads. There is no pneumothorax or effusion. Lungs are hyperinflated. Chronic lung changes noted. Old right-sided rib fracture seen. No consolidation seen. Impression: Cardiomegaly and COPD. Reported By:
[2019-04-08 03:44] LABS: BASOPHILS # (AUTO) 0.1 X10^3/uL (0.0-0.1); BASOPHILS % (AUTO) 1.7 % (0.2-1.0); EOSINOPHILS # (AUTO) 0.2 x10^3/uL (0.0-0.2); EOSINOPHILS % (AUTO) 3.4 % (0.9-2.9); HEMATOCRIT 36.9 % (42.0-54.0); HEMOGLOBIN 12.7 g/dL (13.5-18.0); LYMPHOCYTES # (AUTO) 1.6 X10^3/uL (1.3-2.9); LYMPHOCYTES % (AUTO) 26.5 % (21.0-51.0); MEAN CORPUSCULAR HEMOGLOBIN 29.7 pg (27.0-34.0); MEAN CORPUSCULAR HGB CONC 34.5 g/dL (33.0-35.0); MEAN CORPUSCULAR VOLUME 86.2 fL (80.0-100.0); MEAN PLATELET VOLUME 8.5 fL (7.4-11.0); MONOCYTES # (AUTO) 0.7 x10^3/uL (0.3-0.8); MONOCYTES % (AUTO) 11.1 % (0.0-13.0); NEUTROPHILS # (AUTO) 3.4 x10^3/uL (2.2-4.8); NEUTROPHILS % (AUTO) 57.3 % (42.0-75.0); PLATELET COUNT 144 X10^3/uL (150.0-450.0); RED BLOOD COUNT 4.28 X10^6/uL (4.7-6.0); RED CELL DISTRIBUTION WIDTH 13.3 % (11.6-16.5)
[2019-04-08 03:53] LABS: ALANINE AMINOTRANSFERASE 23 Units/L (12-78); ALBUMIN 3.5 g/dL (3.4-5.0); ALKALINE PHOSPHATASE 36 Units/L (46-116); ASPARTATE AMINO TRANSFERASE 20 Units/L (15-37); BLOOD UREA NITROGEN 28 mg/dL (7-18); CALCIUM 8.3 mg/dL (8.5-10.1); CARBON DIOXIDE 27.7 mmol/L (21-32); CHLORIDE 104 mmol/L (98-107); CHOL/HDL RATIO 4.5 (0.0-5.0); CHOLESTEROL 157 mg/dL (0-200); COR NA(FOR HYPERGLY) 140 mmol/L (136-145); CREATININE 1.55 mg/dL (0.70-1.30); HDL CHOLESTEROL 35 mg/dL (40-60); SODIUM 139 mmol/L (136-145); TOTAL PROTEIN 6.7 g/dL (6.4-8.2); TRIGLYCERIDES 148 mg/dL (0-150); eGFR NON BLACK RACES 47 (>60)
[2019-04-08 04:08] LABS: CKMB % 1.3 % (<4); CREATINE KINASE 77 Units/L (39-308); CREATINE KINASE MB < 1.0 ng/mL (0-4.0); TROPONIN I < 0.02 ng/mL (0-1.5)
[2019-04-08 10:07] LABS: CKMB % 1.2 % (<4); CREATINE KINASE 82 Units/L (39-308); CREATINE KINASE MB < 1.0 ng/mL (0-4.0); TROPONIN I < 0.02 ng/mL (0-1.5)
[2019-04-08] MEDS ORDERED: NEURONTIN CAP 300 MG PO SCH (10:43)
[2019-04-08] MEDS ORDERED: PATIENT'S HOME MEDICATION (Fluticasone-Umeclidin-Vilanter [Trelegy Ellipta] 1 INH) IN SCH (10:45)
[2019-04-08] MEDS ORDERED: ZANTAC PO SCH (11:00)
--- NOTE | 2019-04-08 12:13 | DR.H&P ---
H&P - History & Physical for Day of: H&P Date: 04/08/19 - Chief Complaint Chief Complaint: SOB, DIFFICULTY SWALLOWING, ABDOMINAL PAIN - History of Present Illness History of Present Illness: IS A 73 YEAR OLD PATIENT OF OURS WHO PRESENTE D TO THE ER WITH COMPLAINTS OF SHORTNESS OF BREATH, DIFFICULTY SWALLOWING, AND LEFT SIDED ABDOMINAL PAIN. PATIENT REPORTS THAT SYMPTOMS STARTED EARLIER IN THE DAY AND HAVE PROGRESSIVELY WORSENED. HE HAS A HISTORY OF NC, CAD, AND CHF. ON ARRIVAL TO THE ER, VITALS WERE 98.5-70-18-95%-139/76. LABS WERE OBTAINED. ABNORMAL LAB VALUES INCLUDE THE FOLLOWING: RBC 4.46, HGB 13.3, HCT 38.3, BUN 29, CREATININE 1.80, GLUCOSE 142, ALK PHOS 39. CARDIAC ENZYMES WITHIN NORMAL LIMITS. AN ABDOMEN/PELVIS CT WITHOUT CONTRAST WAS OBTAINED AND REVEALED: No acute abnormality to explain the patient's pain. Gallstone, cardiomegaly, vascular plaque, spine DJD. Prominent prostate gland. Correlate with PSA and physical exam findings. A CHEST XRAY WAS OBTAINED AND REVEALED: CARDIOMEGALY AND COPD. HE WAS ADMITTED FOR FURTHER EVALUATION AND TREATMENT OF SHORTNESS OF BREATH, DYSPHAGIA, AND ABDOMINAL PAIN. WE PLAN TO OBTAIN A SPEECH CONSULT FOR A SWALLOWING EVALUATION, AN ECHO, AND WE WILL CONSULT FOR THE DYSPHAGIA. WE WILL START PEPCID IV, PROTONIX IV, GI COCKTAIL, DUONEBS, AND WILL RESUME HIS HOME MEDICATIONS. OTHERWISE, WE PLAN TO FOLLOW UP WITH AM LABS AND CONTINUE TO MONITOR. - Past Medical History Past Medical History: [place], Coronary Artery Disease, Hypertension, Dyslipidemia, Diabetes, Anxiety, Hypothyroidism, GERD - Past Surgical History Surgical History: Abdominal Surgery, Angioplasty/Stents, Other - Family History Family Medical History: Hypertension - Social History Does patient currently use any type of tobacco product: No Have you used tobacco products in the last 12 months: No Type of Tobacco Use: Cigarettes How many years tobacco product used: 55 Does any household member use tobacco: No Alcohol Use: None Drug Use: None Prescription drug monitoring program results: PDMP was not reviewed - Medications Home Medications: No Known Drug Allergies Allergy (Verified 07/03/18 15:39) CONTINUE taking the following medications carvedilol [Coreg] 25 mg PO BID 04/07/19 [History] clonazepam [Klonopin] 0.5 mg PO BID 04/07/19 [History] fenofibrate 160 mg PO HS 04/07/19 [History] ijeohtrretx-kcgzepgkj-yeusmblu [Trelegy Ellipta] 1 inh INHALATION ONCE 04/07/19 [History] zthpneuisyu-qdwghzocx-neqodvbv [Trelegy Ellipta] INHALATION DAILY 04/07/19 [History] gabapentin [Neurontin] 300 mg PO DAILYAC 04/07/19 [History] levothyroxine [Synthroid] 175 mcg PO QAC 04/07/19 [History] montelukast [Singulair] 10 mg PO DAILY 04/07/19 [History] ranitidine HCl [Zantac] 150 mg PO DAILY 04/07/19 [History] sacubitril-valsartan [Entresto] PO BID 04/07/19 [History] gabapentin 600 mg PO QHS 04/08/19 [History] - Review of Systems Constitutional: Other (DIFFICULTY SWALLOWING ) Eyes: No Symptoms Reported ENT: No Symptoms Reported Respiratory: Shortness of Breath Cardiovascular: No Symptoms Reported Gastrointestinal: Abdominal Pain Genitourinary: No Symptoms Reported Musculoskeletal: No Symptoms Reported Skin: No Symptoms Reported Neurological: Weakness - Physical Exam Vital Signs: Temperature 97.9 F Pulse Rate [Left Brachial] 70 Pulse Rate 70 Respiratory Rate 20 Blood Pressure [Left Arm] 123/58 Blood Pressure [Right Arm] 142/69 Blood Pressure 141/75 O2 Sat by Pulse Oximetry 96 Oriented: Normal Eyes: Normal Ear: Normal Nose: Normal Throat: Normal Respiratory: Diminished Throughout Cardiovascular: Normal. negative: S3, S4, Murmur : Normal Auscultation: Bowel Sounds: Normal Palpation: Normal Tenderness: LUQ, LLQ, Mild. negative: Rebound, Guarding, Rigidity Skin: Normal Musculoskeletal: Normal Psychiatric: Normal Mood Description: Calm Affect: Normal Speech Pattern: Clear - Assessment/Plan (1) Dysphagia Qualifiers: Dysphagia type: unspecified Qualified Code(s): R13.10 - Dysphagia, unspecified Status: Acute Plan: ADMIT, SWALLOWING EVALUATION, GI CONSULT, PEPCID IV, PROTONIX IV, GI COCKTAIL, DUONEBS, CONTINUE TO MONITOR (2) Abdominal pain Qualifiers: Abdominal location: left upper quadrant Qualified Code(s): R10.12 - Left upper quadrant pain Status: Acute (3) Shortness of breath Status: Acute Plan: OBTAIN ECHO, DUONEBS, SUPPLEMENTAL OXYGEN, CONTINUE TO MONITOR - Allergies Allergies/Adverse Reactions: Allergies Allergy/AdvReac Type Severity Reaction Status Date / Time No Known Drug Allergies Allergy Verified 07/03/18 15:39
[2019-04-08] MEDS: COREG TAB 25 MG PO SCH ×2 (12:23→20:25)
[2019-04-08] MEDS: CITRACAL + VITAMIN D PO SCH (12:23)
[2019-04-08] MEDS: KLONOPIN TAB 0.5 MG PO SCH ×2 (12:24→20:25)
[2019-04-08] MEDS: FLOMAX PO SCH (12:24)
[2019-04-08] MEDS: SYNTHROID 175 mcg TAB PO SCH (12:24)
[2019-04-08] MEDS: SINGULAIR TAB 10 MG PO SCH (12:25)
[2019-04-08] MEDS: PROTONIX INJ 40 MG VIAL IVP SCH ×2 (12:26→20:26)
[2019-04-08] MEDS: PEPCID 20 MG IV PREMIX* 20 MG/50 ML BAG IV SCH ×2 (12:26→20:25)
[2019-04-08] MEDS ORDERED: NS 500 ML IV 500 ML IV ONE (12:29)
--- NOTE | 2019-04-08 17:19 | DR.CONSULT ---
Consult - Consultation for Day of: Date: 04/08/19 - Chief Complaint Chief Complaint: Patient referred for Dysphagia. Patient with complaints of dysphagia and LUQ pain. - History of Present Illness History of Present Illness: Patient is a 73yo male who was referred for Dysphagia. Patient with complaints of dysphagia and LUQ pain. Patient denies dyspepsia, nausea, vomiting, constipation, diarrhea, melena and hematochezia. States last colon was 5-10 years ago with Alyce/Lorie unsure if any polyps. Unsure if he has ever had an EGD. Hgb 12.7, Hct 36.9, Plt 144, BUN 28, Creatinine 1.55. - Past Medical History Past Medical History: [place], Coronary Artery Disease, Hypertension, Dyslipidemia, Diabetes, Anxiety, Hypothyroidism, GERD - Past Surgical History Surgical History: Abdominal Surgery, Angioplasty/Stents, Other - Family History Family Medical History: Hypertension - Social History Does patient currently use any type of tobacco product: No Have you used tobacco products in the last 12 months: No Type of Tobacco Use: Cigarettes How many years tobacco product used: 55 Does any household member use tobacco: No Alcohol Use: None Drug Use: None - Medications Home Medications: No Known Drug Allergies Allergy (Verified 07/03/18 15:39) CONTINUE taking the following medications carvedilol [Coreg] 25 mg PO BID 04/07/19 [History] clonazepam [Klonopin] 0.5 mg PO BID 04/07/19 [History] fenofibrate 160 mg PO HS 04/07/19 [History] jsckwoydjdz-uqfwjuggi-vgxhdgpv [Trelegy Ellipta] 1 inh INHALATION ONCE 04/07/19 [History] depyohqmqto-srzgpqcdn-kndagnws [Trelegy Ellipta] INHALATION DAILY 04/07/19 [History] gabapentin [Neurontin] 300 mg PO DAILYAC 04/07/19 [History] levothyroxine [Synthroid] 175 mcg PO QAC 04/07/19 [History] montelukast [Singulair] 10 mg PO DAILY 04/07/19 [History] ranitidine HCl [Zantac] 150 mg PO DAILY 04/07/19 [History] sacubitril-valsartan [Entresto] PO BID 04/07/19 [History] gabapentin 600 mg PO QHS 04/08/19 [History] - Review of Systems Gastrointestinal: See HPI, Abdominal Pain (LUQ), Other (dysphagia). denies: Nausea, Vomiting, Diarrhea, Constipation, Melena, Hematochezia - Physical Exam Vital Signs: Temperature 97.9 F Pulse Rate [Left Brachial] 69 Pulse Rate 70 Respiratory Rate 20 Blood Pressure [Left Arm] 152/77 Blood Pressure [Right Arm] 142/69 Blood Pressure 141/75 O2 Sat by Pulse Oximetry 96 Oriented: Normal Eyes: Normal Ear: Normal Nose: Normal Throat: Normal Respiratory: Clear Throughout Cardiovascular: Normal Auscultation: Bowel Sounds: Normal Palpation: Normal, Other (no distention). negative: Spleen Enlarged, Liver Enlarged, Mass Pulsatile Tenderness: LUQ Skin: Normal Musculoskeletal: Normal Psychiatric: Normal Mood Description: Calm Affect: Normal Speech Pattern: Clear, Appropriate - Plan Plan: Assessment. 1. Dysphagia r/o esophageal stricture. Plan. 1. EGD tomorrow. Plan reviewed with Dr. Evans - Allergies Allergies/Adverse Reactions: Allergies Allergy/AdvReac Type Severity Reaction Status Date / Time No Known Drug Allergies Allergy Verified 07/03/18 15:39
[2019-04-08] MEDS: TRICOR TAB 160 MG PO SCH (20:25)
[2019-04-08] MEDS: NEURONTIN CAP 300 MG PO SCH (20:25)
[2019-04-08] MEDS: LIPITOR TAB 40 MG PO SCH (20:25)
[2019-04-08] MEDS: DUONEB 0.5 MG/3 MG NEB SCH (21:05)
[2019-04-08] MEDS: PULMICORT NEB TX 0.5 MG NEB SCH (21:05)
[2019-04-09 04:51] LABS: BASOPHILS # (AUTO) 0.1 X10^3/uL (0.0-0.1); BASOPHILS % (AUTO) 1.4 % (0.2-1.0); EOSINOPHILS # (AUTO) 0.2 x10^3/uL (0.0-0.2); EOSINOPHILS % (AUTO) 3.7 % (0.9-2.9); HEMATOCRIT 37.4 % (42.0-54.0); HEMOGLOBIN 12.9 g/dL (13.5-18.0); LYMPHOCYTES # (AUTO) 1.4 X10^3/uL (1.3-2.9); LYMPHOCYTES % (AUTO) 23.5 % (21.0-51.0); MEAN CORPUSCULAR HGB CONC 34.5 g/dL (33.0-35.0); MEAN CORPUSCULAR VOLUME 86.7 fL (80.0-100.0); MONOCYTES # (AUTO) 0.6 x10^3/uL (0.3-0.8); MONOCYTES % (AUTO) 10.3 % (0.0-13.0); NEUTROPHILS # (AUTO) 3.7 x10^3/uL (2.2-4.8); NEUTROPHILS % (AUTO) 61.1 % (42.0-75.0); PLATELET COUNT 149 X10^3/uL (150.0-450.0); RED BLOOD COUNT 4.31 X10^6/uL (4.7-6.0); RED CELL DISTRIBUTION WIDTH 13.3 % (11.6-16.5)
[2019-04-09 05:11] LABS: ALANINE AMINOTRANSFERASE 23 Units/L (12-78); ALBUMIN 3.3 g/dL (3.4-5.0); ALKALINE PHOSPHATASE 36 Units/L (46-116); ASPARTATE AMINO TRANSFERASE 20 Units/L (15-37); BLOOD UREA NITROGEN 18 mg/dL (7-18); CALCIUM 8.3 mg/dL (8.5-10.1); CARBON DIOXIDE 25.8 mmol/L (21-32); CHLORIDE 105 mmol/L (98-107); COR CA(FOR HYPOALB) 8.9 mg/dL (8.5-10.1); COR NA(FOR HYPERGLY) 141 mmol/L (136-145); CREATININE 1.37 mg/dL (0.70-1.30); SODIUM 141 mmol/L (136-145); TOTAL PROTEIN 6.5 g/dL (6.4-8.2); eGFR NON BLACK RACES 54 (>60)
[2019-04-09] MEDS: SYNTHROID 175 mcg TAB PO SCH (06:06)
[2019-04-09] MEDS: PULMICORT NEB TX 0.5 MG NEB SCH ×2 (08:44→20:46)
[2019-04-09] MEDS: DUONEB 0.5 MG/3 MG NEB SCH ×4 (08:44→20:46)
[2019-04-09] MEDS: COREG TAB 25 MG PO SCH ×2 (08:58→21:24)
[2019-04-09] MEDS: PEPCID 20 MG IV PREMIX* 20 MG/50 ML BAG IV SCH ×2 (08:58→21:31)
[2019-04-09] MEDS: KLONOPIN TAB 0.5 MG PO SCH ×2 (08:58→21:23)
[2019-04-09] MEDS: FLOMAX PO SCH (08:58)
[2019-04-09] MEDS: CITRACAL + VITAMIN D PO SCH (08:58)
[2019-04-09] MEDS: SINGULAIR TAB 10 MG PO SCH (08:59)
[2019-04-09] MEDS: PROTONIX INJ 40 MG VIAL IVP SCH ×2 (08:59→21:32)
[2019-04-09] MEDS ORDERED: DIPRIVAN VIAL 20 ML ONE (14:53)
[2019-04-09] MEDS: NEURONTIN CAP 300 MG PO SCH (21:23)
[2019-04-09] MEDS: TRICOR TAB 160 MG PO SCH (21:24)
[2019-04-09] MEDS: LIPITOR TAB 40 MG PO SCH (21:31)
[2019-04-10 05:05] LABS: BASOPHILS # (AUTO) 0.1 X10^3/uL (0.0-0.1); BASOPHILS % (AUTO) 1.4 % (0.2-1.0); EOSINOPHILS # (AUTO) 0.2 x10^3/uL (0.0-0.2); EOSINOPHILS % (AUTO) 2.6 % (0.9-2.9); HEMATOCRIT 37.2 % (42.0-54.0); LYMPHOCYTES # (AUTO) 1.1 X10^3/uL (1.3-2.9); MEAN CORPUSCULAR HEMOGLOBIN 29.8 pg (27.0-34.0); MEAN CORPUSCULAR HGB CONC 34.9 g/dL (33.0-35.0); MEAN CORPUSCULAR VOLUME 85.5 fL (80.0-100.0); MEAN PLATELET VOLUME 8.5 fL (7.4-11.0); MONOCYTES # (AUTO) 0.6 x10^3/uL (0.3-0.8); MONOCYTES % (AUTO) 9.5 % (0.0-13.0); NEUTROPHILS # (AUTO) 4.1 x10^3/uL (2.2-4.8); NEUTROPHILS % (AUTO) 68.5 % (42.0-75.0); PLATELET COUNT 149 X10^3/uL (150.0-450.0); RED BLOOD COUNT 4.35 X10^6/uL (4.7-6.0); RED CELL DISTRIBUTION WIDTH 13.2 % (11.6-16.5)
[2019-04-10 05:12] LABS: ALANINE AMINOTRANSFERASE 22 Units/L (12-78); ALBUMIN 3.4 g/dL (3.4-5.0); ALKALINE PHOSPHATASE 38 Units/L (46-116); ASPARTATE AMINO TRANSFERASE 19 Units/L (15-37); BLOOD UREA NITROGEN 22 mg/dL (7-18); CALCIUM 8.4 mg/dL (8.5-10.1); CHLORIDE 106 mmol/L (98-107); COR NA(FOR HYPERGLY) 142 mmol/L (136-145); CREATININE 1.36 mg/dL (0.70-1.30); SODIUM 142 mmol/L (136-145); TOTAL PROTEIN 6.7 g/dL (6.4-8.2); eGFR NON BLACK RACES 54 (>60)
[2019-04-10] MEDS: SYNTHROID 175 mcg TAB PO SCH (06:03)
[2019-04-10] MEDS: DUONEB 0.5 MG/3 MG NEB SCH (08:27)
[2019-04-10] MEDS: PULMICORT NEB TX 0.5 MG NEB SCH (08:27)
[2019-04-10] MEDS: FLOMAX PO SCH (08:57)
[2019-04-10] MEDS: KLONOPIN TAB 0.5 MG PO SCH (08:57)
[2019-04-10] MEDS: SINGULAIR TAB 10 MG PO SCH (08:57)
[2019-04-10] MEDS: COREG TAB 25 MG PO SCH (09:01)
[2019-04-10] MEDS: PROTONIX INJ 40 MG VIAL IVP SCH (09:02)
[2019-04-10] MEDS: PEPCID 20 MG IV PREMIX* 20 MG/50 ML BAG IV SCH (09:03)
[2019-04-10 09:45] VITALS: BP 150/69
[2019-04-10] MEDS: CITRACAL + VITAMIN D PO SCH (09:45)
[2019-04-10] MEDS ORDERED: DIPRIVAN VIAL ONE (15:42)
== END 2019-04-10 11:10 | disposition home or self-care (01) ==
LOC: MED/SURG 20:16 → ER 20:16 → MED/SURG 04-08 03:00
PROVIDERS: ADMIT Internal Medicine; ATTEND Internal Medicine
DX: K21.9 Gastro-esophageal reflux disease without esophagitis; I25.10 Atherosclerotic heart disease of native coronary artery without angina pectoris; R13.11 Dysphagia, oral phase; K44.9 Diaphragmatic hernia without obstruction or gangrene; E03.8 Other specified hypothyroidism; R06.02 Shortness of breath; K29.00 Acute gastritis without bleeding; J44.9 Chronic obstructive pulmonary disease, unspecified; E78.2 Mixed hyperlipidemia; R94.31 Abnormal electrocardiogram [ECG] [EKG]; K29.80 Duodenitis without bleeding; R10.12 Left upper quadrant pain; K22.2 Esophageal obstruction; I11.9 Hypertensive heart disease without heart failure; R10.84 Generalized abdominal pain; F41.8 Other specified anxiety disorders; K20.8 Other esophagitis; E11.65 Type 2 diabetes mellitus with hyperglycemia
CPT/HCPCS: 36415; 71010; 71045; 74176; 80053; 80061; 82550; 82553; 83690; 84153; 84484; 85025; 88305; 93005; 93306; 94640; 96365; 96367; 97116; 97162; 99100; 99284; A4216; A4222; C9113; S0028; G0378; J2704; J7040; J7620; J7626

== ENCOUNTER 2020-11-16 12:19 | Observation (INO) ==
[2020-11-16 14:57] LABS: BASOPHILS # (AUTO) 0.1 X10^3/uL (0.0-0.1); BASOPHILS % (AUTO) 1.3 % (0.2-1.0); EOSINOPHILS # (AUTO) 0.2 x10^3/uL (0.0-0.2); EOSINOPHILS % (AUTO) 2.3 % (0.9-2.9); HEMATOCRIT 36.8 % (42.0-54.0); HEMOGLOBIN 12.4 g/dL (13.5-18.0); LYMPHOCYTES # (AUTO) 1.7 X10^3/uL (1.3-2.9); LYMPHOCYTES % (AUTO) 18.9 % (21.0-51.0); MEAN CORPUSCULAR HEMOGLOBIN 29.8 pg (27.0-34.0); MEAN CORPUSCULAR HGB CONC 33.6 g/dL (33.0-35.0); MEAN CORPUSCULAR VOLUME 88.6 fL (80.0-100.0); MEAN PLATELET VOLUME 9.4 fL (7.4-11.0); MONOCYTES # (AUTO) 0.8 x10^3/uL (0.3-0.8); MONOCYTES % (AUTO) 9.3 % (0.0-13.0); NEUTROPHILS % (AUTO) 68.2 % (42.0-75.0); PLATELET COUNT 193 X10^3/uL (150.0-450.0); RED BLOOD COUNT 4.15 X10^6/uL (4.7-6.0); RED CELL DISTRIBUTION WIDTH 13.3 % (11.6-16.5); WHITE BLOOD COUNT 8.8 X10^3/uL (3.6-10.0)
--- NOTE | 2020-11-16 14:58 | RAD ---
HISTORYSOB, HYPOTENSIONSTUDYCHEST x-ray, 1 VIEWCOMPARISONX-ray 04/07/2019FINDINGSCardiac device leads are unchanged in position. There is cardiomegaly, similar to prior study. No pulmonary venous congestion is seen. Aortic arch appears prominent, similar to prior study. There is likely mass effect on the trachea which is displaced to the right of midline. Linear atelectasis is seen in the lingula. No pneumothorax or pleural effusion is seen. Right rib deformity from old healed fracture.IMPRESSIONPersistent cardiomegaly. Persistent prominence of the aortic arch. No evidence of CHF.Electronically signed by: Rito Sinha (Nov 16, 2020 14:56:36)
[2020-11-16 15:18] LABS: ALANINE AMINOTRANSFERASE 20 Units/L (12-78); ALBUMIN 3.8 g/dL (3.4-5.0); ALKALINE PHOSPHATASE 34 Units/L (46-116); ASPARTATE AMINO TRANSFERASE 21 Units/L (15-37); BLOOD UREA NITROGEN 47 mg/dL (7-18); CALCIUM 9.2 mg/dL (8.5-10.1); CARBON DIOXIDE 32.5 mmol/L (21-32); CHLORIDE 102 mmol/L (98-107); CKMB % 1.2 % (<4); CREATINE KINASE 85 Units/L (39-308); CREATINE KINASE MB < 1.0 ng/mL (0-4.0); CREATININE 3.19 mg/dL (0.70-1.30); SODIUM 141 mmol/L (136-145); TOTAL PROTEIN 7.9 g/dL (6.4-8.2); TROPONIN I < 0.02 ng/mL (0-1.5); eGFR NON BLACK RACES 20 (>60)
[2020-11-16] MEDS: NS 1000 ML 1,000 ML IV SCH (15:57)
[2020-11-16 16:07] VITALS: BMI 26.9
[2020-11-16 19:12] LABS: BILIRUBIN,URINE NEGATIVE (NEGATIVE); BLOOD/HEMOGLOBIN,URINE NEGATIVE (NEGATIVE); GLUCOSE, URINE NEGATIVE (NEGATIVE); KETONES,URINE NEGATIVE (NEGATIVE); LEUKOCYTE ESTERASE ,URINE NEGATIVE (NEGATIVE); NITRITES,URINE NEGATIVE (NEGATIVE); PROTEIN,URINE NEGATIVE (NEGATIVE); UROBILINOGEN,URINE NORMAL (NORMAL)
[2020-11-16 19:14] LABS: APPEARANCE,URINE CLEAR (CLEAR); COLOR,URINE YELLOW (YELLOW)
[2020-11-16 20:56] LABS: CKMB % 1.5 % (<4); CREATINE KINASE 66 Units/L (39-308); CREATINE KINASE MB < 1.0 ng/mL (0-4.0); TROPONIN I < 0.02 ng/mL (0-1.5)
[2020-11-17 02:29] LABS: BASOPHILS # (AUTO) 0.1 X10^3/uL (0.0-0.1); EOSINOPHILS # (AUTO) 0.2 x10^3/uL (0.0-0.2); LYMPHOCYTES # (AUTO) 1.8 X10^3/uL (1.3-2.9); MEAN PLATELET VOLUME 9.1 fL (7.4-11.0); MONOCYTES # (AUTO) 0.6 x10^3/uL (0.3-0.8); WHITE BLOOD COUNT 7.4 X10^3/uL (3.6-10.0)
[2020-11-17 02:33] LABS: BASOPHILS % (AUTO) 1.3 % (0.2-1.0); EOSINOPHILS % (AUTO) 2.5 % (0.9-2.9); HEMATOCRIT 32.9 % (42.0-54.0); HEMOGLOBIN 11.1 g/dL (13.5-18.0); LYMPHOCYTES % (AUTO) 24.2 % (21.0-51.0); MEAN CORPUSCULAR HEMOGLOBIN 29.6 pg (27.0-34.0); MEAN CORPUSCULAR HGB CONC 33.6 g/dL (33.0-35.0); MEAN CORPUSCULAR VOLUME 88.1 fL (80.0-100.0); MONOCYTES % (AUTO) 8.6 % (0.0-13.0); NEUTROPHILS # (AUTO) 4.7 x10^3/uL (2.2-4.8); NEUTROPHILS % (AUTO) 63.4 % (42.0-75.0); PLATELET COUNT 155 X10^3/uL (150.0-450.0); RED BLOOD COUNT 3.73 X10^6/uL (4.7-6.0); RED CELL DISTRIBUTION WIDTH 13.1 % (11.6-16.5)
[2020-11-17 02:41] LABS: ALANINE AMINOTRANSFERASE 16 Units/L (12-78); ALBUMIN 3.2 g/dL (3.4-5.0); ALKALINE PHOSPHATASE 31 Units/L (46-116); ASPARTATE AMINO TRANSFERASE 20 Units/L (15-37); BLOOD UREA NITROGEN 45 mg/dL (7-18); CALCIUM 8.4 mg/dL (8.5-10.1); CHLORIDE 104 mmol/L (98-107); CREATININE 2.88 mg/dL (0.70-1.30); SODIUM 142 mmol/L (136-145); TOTAL PROTEIN 6.5 g/dL (6.4-8.2); eGFR NON BLACK RACES 23 (>60)
[2020-11-17 02:50] LABS: CKMB % 1.8 % (<4); CREATINE KINASE 56 Units/L (39-308); CREATINE KINASE MB < 1.0 ng/mL (0-4.0); TROPONIN I < 0.02 ng/mL (0-1.5)
[2020-11-17 03:27] LABS: PLATELET MORPHOLOGY COMMENT NORMAL (NORMAL)
[2020-11-17] MEDS: NS 1000 ML 1,000 ML IV SCH ×3 (08:02→15:20)
[2020-11-17] MEDS: LOVENOX INJ 30 MG SYR SC SCH (10:00)
[2020-11-17] MEDS: ENTRESTO 24/26 MG TAB PO SCH ×3 (10:01→20:49)
[2020-11-17 11:54] LABS: CKMB % 1.2 % (<4); CREATINE KINASE 82 Units/L (39-308); CREATINE KINASE MB < 1.0 ng/mL (0-4.0); TROPONIN I < 0.02 ng/mL (0-1.5)
[2020-11-17] MEDS: ASPIRIN EC 81 MG PO SCH (12:19)
[2020-11-17] MEDS: COREG TAB 25 MG PO SCH ×2 (12:20→20:47)
[2020-11-17] MEDS: PROTONIX TAB 40 MG PO SCH (12:20)
[2020-11-17] MEDS: LEVAQUIN TAB 500 MG PO SCH (12:20)
[2020-11-17 17:52] LABS: CKMB % 1.6 % (<4); CREATINE KINASE 61 Units/L (39-308); CREATINE KINASE MB < 1.0 ng/mL (0-4.0); TROPONIN I < 0.02 ng/mL (0-1.5)
[2020-11-17] MEDS ORDERED: NEURONTIN TAB 600 MG PO SCH (21:00)
[2020-11-17] MEDS ORDERED: LIPITOR TAB 40 MG PO SCH ×2 (21:00)
[2020-11-17] MEDS ORDERED: SINGULAIR TAB 10 MG PO SCH (21:00)
[2020-11-17] MEDS ORDERED: TRICOR TAB 160 MG PO SCH (21:00)
[2020-11-17] MEDS ORDERED: FLOMAX PO SCH ×2 (21:00)
[2020-11-17 23:47] LABS: CKMB % 1.8 % (<4); CREATINE KINASE 57 Units/L (39-308); CREATINE KINASE MB < 1.0 ng/mL (0-4.0); TROPONIN I < 0.02 ng/mL (0-1.5)
[2020-11-18 04:38] LABS: BASOPHILS # (AUTO) 0.1 X10^3/uL (0.0-0.1); BASOPHILS % (AUTO) 1.1 % (0.2-1.0); EOSINOPHILS # (AUTO) 0.2 x10^3/uL (0.0-0.2); EOSINOPHILS % (AUTO) 3.1 % (0.9-2.9); HEMATOCRIT 31.2 % (42.0-54.0); HEMOGLOBIN 10.5 g/dL (13.5-18.0); LYMPHOCYTES # (AUTO) 1.8 X10^3/uL (1.3-2.9); LYMPHOCYTES % (AUTO) 22.6 % (21.0-51.0); MEAN CORPUSCULAR HEMOGLOBIN 29.7 pg (27.0-34.0); MEAN CORPUSCULAR HGB CONC 33.7 g/dL (33.0-35.0); MEAN CORPUSCULAR VOLUME 88.1 fL (80.0-100.0); MONOCYTES # (AUTO) 0.8 x10^3/uL (0.3-0.8); MONOCYTES % (AUTO) 9.5 % (0.0-13.0); NEUTROPHILS # (AUTO) 5.2 x10^3/uL (2.2-4.8); NEUTROPHILS % (AUTO) 63.7 % (42.0-75.0); PLATELET COUNT 143 X10^3/uL (150.0-450.0); RED BLOOD COUNT 3.54 X10^6/uL (4.7-6.0); WHITE BLOOD COUNT 8.1 X10^3/uL (3.6-10.0)
[2020-11-18 04:46] LABS: ALANINE AMINOTRANSFERASE 16 Units/L (12-78); ALKALINE PHOSPHATASE 29 Units/L (46-116); ASPARTATE AMINO TRANSFERASE 19 Units/L (15-37); BLOOD UREA NITROGEN 31 mg/dL (7-18); CALCIUM 8.3 mg/dL (8.5-10.1); CARBON DIOXIDE 29.3 mmol/L (21-32); CHLORIDE 106 mmol/L (98-107); COR CA(FOR HYPOALB) 9.1 mg/dL (8.5-10.1); CREATININE 2.13 mg/dL (0.70-1.30); SODIUM 143 mmol/L (136-145); TOTAL PROTEIN 6.2 g/dL (6.4-8.2); eGFR NON BLACK RACES 32 (>60)
[2020-11-18] MEDS ORDERED: SYNTHROID 137 mcg TAB ONE (05:08)
[2020-11-18 05:09] LABS: PLATELET MORPHOLOGY COMMENT NORMAL (NORMAL)
[2020-11-18] MEDS: NS 1000 ML 1,000 ML IV SCH (06:04)
[2020-11-18] MEDS ORDERED: SYNTHROID 137 mcg TAB PO SCH (06:30)
[2020-11-18] MEDS ORDERED: NEURONTIN CAP 300 MG PO SCH (07:30)
[2020-11-18 07:55] VITALS: BP 113/66
[2020-11-18] MEDS: LOVENOX INJ 30 MG SYR SC SCH (09:12)
[2020-11-18] MEDS: COREG TAB 25 MG PO SCH (09:13)
[2020-11-18] MEDS: ASPIRIN EC 81 MG PO SCH (09:13)
[2020-11-18] MEDS: LEVAQUIN TAB 500 MG PO SCH (09:13)
[2020-11-18] MEDS: PROTONIX TAB 40 MG PO SCH (09:13)
[2020-11-18] MEDS: ENTRESTO 24/26 MG TAB PO SCH (09:15)
--- NOTE | 2020-11-18 09:53 | DR.UPDATE ---
H&P Update History and Physical Update: History and Physical reviewed and patient examined. Changes noted: Yes with the following: IS A 75 YEAR OLD PATIENT OF OURS WHO WAS SEEN IN THE OFFICE DUE TO COMPLAINTS OF WEAKNESS, DIZZINESS, UNSTEADY GAIT, FREQUENT FALL, AND LOW BLOOD PRESSURE. ON ARRIVAL TO THE OFFICE, PATIENTS BLOOD PRESSURE WAS 70s/40s. HE REPORTS THAT SYMPTOMS STARTED ABOUT A WEEK AGO. HE WAS TREATED ONE WEEK AGO FOR ACUTE BRONCHITIS. AT THAT TIME, HE HAD PRODUCTIVE COUGH AND CONGESTION. HE REPORTS IMPROVEMENT IN THOSE SYMPTOMS NOW. AT THAT TIME, HE WAS GIVEN LEVAQUIN, MUCINEX, SINGULAIR, AND NEBULIZER TREATMENTS. HIS PMH INCLUDES CAD, [place], PACEMAKER, DEFIBRILLATOR, HYPERLIPIDEMIA, HTN, GERD, DM II, HYPOTHYROIDISM, SKIN CANCER, ANXIETY, ABDOMINAL SURGERY, AND CARDIAC STENTS. PATIENT IS CURRENTLY ON A HIGH DOSE ENTRESTO BID AND COREG 25MG PO BID FOR HEART FAILURE. EXAMINATION IN THE OFFICE REVEALED A NORMAL HEART RATE. BILATERAL LUNGS WERE NOTED TO HAVE DIMINISHED LUNG SOUNDS THROUGHOUT. ABDOMEN ROUND, SOFT, AND NON-TENDER WITH NORMAL BOWEL SOUNDS IN ALL QUADRANTS. HE WAS SENT TO THE HOSPITAL FOR DIRECT ADMISSION OF HYPOTENSION AND GENERALIZED WEAKNESS. ON ARRIVAL TO THE HOSPITAL, VITALS WERE 100/56. LABS WERE OBTAINED. ABNORMAL LAB VALUES INCLUDE THE FOLLOWING: RBC 4.15, HGB 12.4, HCT 36.8, CARBON DIOXIDE 32.5, BUN 47, CREATININE 3.19, GLUCOSE 101, ALK PHOS 34. CARDIAC ENZYMES WERE WITHIN NORMAL LIMITS. URINALYSIS WAS UNREMARKABLE. COVID-19 NEGATIVE. A CHEST XRAY WAS OBTAINED AND REVEALED: Persistent cardiomegaly. Persistent prominence of the aortic arch. No evidence of CHF. EKG REVEALED A PACED RHYTHM OF 71. WE PLAN TO OBTAIN AN ECHO. HE WAS STARTED ON NORMAL SALINE AT 75 ML/HR. WE WILL REVIEW HIS HOME MEDICATIONS WHEN THEY ARE AVAILABLE TO US. OTHERWISE, WE WILL FOLLOW UP WITH AM LABS AND CONTINUE TO MONITOR. TIME SPENT ON CLINICAL ASSESSMENT, REVIEWING LABS AND IMAGING, DECISION MAKING, AND DOCUMENTATION GREATER THAN 75 MINUTES. Prescription drug monitoring program results: PDMP reviewed and no concerns identified H&P Reviewed: Yes Patient was examined?: Yes
--- NOTE | 2020-11-18 10:05 | PCM.PROG ---
Progress Note - Progress Note for Day of Date of Exam: 11/17/20 - Subjective Subjective: WAS ADMITTED FOR HYPOTENSION, GENERALIZED WEAKNESS, UNSTEADY GAIT, AND FREQUENT FALLS. TODAY, HE IS ALERT AND ORIENTED, LYING IN BED ON MORNING ROUNDS. HE CONTINUES WITH COMPLAINTS OF WEAKNESS TODAY, BUT DOES ADMIT TO SLIGHT IMPROVEMENT SINCE ADMISSION. STAFF REPORTS THAT HE HAS BEEN MORE STABLE ON HIS FEET THIS MORNING. HE HAS REMAINED HYPOTENSIVE THROUGHOUT THE NIGHT. ON EXAMINATION, HEART IS REGULAR IN RATE AND RHYTHM. BILATERAL LUNGS ARE NOTED WITH DIMINISHED LUNG SALINAS THROUGHOUT. ABDOMEN IS ROUND, SOFT, AND NON- TENDER WITH NORMAL BOWEL SOUNDS NOTED IN ALL QUADRNATS. NO EDEMA NOTED TO EXTREMITIES. HIS VITALS THIS MORNING ARE: 98.3-70-18-98%-108/55. LABS WERE OBTAINED. ABNORMAL LAB VALUES INCLUDE THE FOLLOWING: RBC 3.73, HGB 11.1, HCT 32.9, BUN 45, CREATININE 2.88, GLUCOSE 105, CALCIUM 8.4, ALK PHOS 31, ALBUMIN 3.2. CARDIAC ENZYMES HAVE BEEN WITHIN NORMAL LIMITS. NO CHANGES NOTED TO EKGS. AN ECHO WAS OBTAINED TODAY AND REVEALED AN EJECTION FRACTION OF 53%. OCCUPATION AL THERAPY WILL EVALUATE PATIENT TODAY. HE IS CURRENTLY RECEIVING NORMAL SALINE AT 75 ML/HR. TODAY, WE WILL DECREASE IV FLUIDS TO 60 ML/HR. WE WILL RESUME HIS HOME MEDICATIONS OF ECOTRIN 81MG PO DAILY, LIPITOR 40MG PO HS, COREG 25MG PO BID FOR HEART FAILURE, TRICOR 160MG PO HS, NEURONTIN 300MG PO IN THE MORING AND 600MG PO HS, LEVAQUIN 500MG PO DAILY, SYNTHROID 137MCG PO DAILY, SINGULAIR 10MG PO HS, PROTONIX 40MG PO DAILY, FLOMAX 0.4MG PO HS. WE WILL RESUME THE ENTRESTO, BUT DECREASE TO 24/26MG PO BID. WE WILL ALSO START LOVENOX 30MG SC DAILY. OTHERWISE, WE PLAN TO FOLLOW UP WITH AM LABS AND CONTINUE TO MONITOR. TIME SPENT ON CLINICAL ASSESSMENT, REVIEWING LABS AND IMAGING, DECISION MAKING, AND DOCUMENTATION GREATER THAN 45 MINUTES. - Past Medical Family Social History Past Med/Fam/Surg Hx: No changes since H&P Allergies: Allergies No Known Drug Allergies Allergy (Verified 07/03/18 15:39) - Review of Systems ROS: No change since H&P - Vital Signs and I&O's Vital Signs: Temperature 97.7 F Pulse Rate [Left] 70 Respiratory Rate 18 Blood Pressure [Left Arm] 113/66 O2 Sat by Pulse Oximetry 99 Intake and Output: Intake & Output 11/15/20 11/16/20 11/17/20 11/18/20 11:59 11:59 11:59 11:59 Intake Total 1125 / 1125 2843 / 2843 Output Total 900 / 900 3025 / 3025 Balance 225 / 225 -182 / -182 - Physical Exam Oriented: Normal Eyes: Normal Ear: Normal Nose: Normal Throat: Normal Respiratory: Generalized, Diminished Cardiovascular: Normal : Normal Auscultation: Bowel Sounds: Normal Palpation: Normal Tenderness: Normal Skin: Normal Musculoskeletal: Normal Psychiatric: Normal Mood Description: Calm Affect: Normal Speech Pattern: Clear, Appropriate - Laboratory and Diagnostics Result Diagrams: 11/18/20 04:15 11/18/20 04:15 Labs: Laboratory WBC 8.1 X10^3/uL (3.6-10.0) 11/18/20 04:15 RBC 3.54 X10^6/uL (4.7-6.0) L 11/18/20 04:15 Hgb 10.5 g/dL (13.5-18.0) L 11/18/20 04:15 Hct 31.2 % (42.0-54.0) L 11/18/20 04:15 MCV 88.1 fL (80.0-100.0) 11/18/20 04:15 MCH 29.7 pg (27.0-34.0) 11/18/20 04:15 MCHC 33.7 g/dL (33.0-35.0) 11/18/20 04:15 RDW 13.0 % (11.6-16.5) 11/18/20 04:15 Plt Count 143 X10^3/uL (150.0-450.0) L 11/18/20 04:15 Plt Count Comment Decreased (ADEQUATE) 11/18/20 04:15 MPV 9.0 fL (7.4-11.0) 11/18/20 04:15 Neut % (Auto) 63.7 % (42.0-75.0) 11/18/20 04:15 Lymph % (Auto) 22.6 % (21.0-51.0) 11/18/20 04:15 [place] % (Auto) 9.5 % (0.0-13.0) 11/18/20 04:15 Eos % (Auto) 3.1 % (0.9-2.9) H 11/18/20 04:15 Baso % (Auto) 1.1 % (0.2-1.0) H 11/18/20 04:15 Neut # (Auto) 5.2 x10^3/uL (2.2-4.8) H 11/18/20 04:15 Lymph # (Auto) 1.8 X10^3/uL (1.3-2.9) 11/18/20 04:15 [place] # (Auto) 0.8 x10^3/uL (0.3-0.8) 11/18/20 04:15 Eos # (Auto) 0.2 x10^3/uL (0.0-0.2) 11/18/20 04:15 Baso # (Auto) 0.1 X10^3/uL (0.0-0.1) 11/18/20 04:15 Absolute Nucleated RBC 0.0 /100WBC 11/18/20 04:15 Total Counted 100 11/18/20 04:15 Neutrophils % (Manual) 71 % (39-76) 11/18/20 04:15 Lymphocytes % (Manual) 28 % (13-43) 11/18/20 04:15 Monocytes % (Manual) 1 % (4-9) L 11/18/20 04:15 Plt Morphology Comment Normal (NORMAL) 11/18/20 04:15 RBC Morphology Normal (NORMAL) 11/18/20 04:15 Sodium 143 mmol/L (136-145) 11/18/20 04:15 Corrected Sodium TNP 11/18/20 04:15 Potassium 4.4 mmol/L (3.5-5.1) 11/18/20 04:15 Chloride 106 mmol/L (98-107) 11/18/20 04:15 Carbon Dioxide 29.3 mmol/L (21-32) 11/18/20 04:15 BUN 31 mg/dL (7-18) H 11/18/20 04:15 Creatinine 2.13 mg/dL (0.70-1.30) H 11/18/20 04:15 Est GFR (MDRD) Af Amer 39 (>60) L 11/18/20 04:15 Est GFR (MDRD) Non-Af 32 (>60) L 11/18/20 04:15 Glucose 96 mg/dL (65-99) 11/18/20 04:15 Calcium 8.3 mg/dL (8.5-10.1) L 11/18/20 04:15 Corrected Calcium 9.1 mg/dL (8.5-10.1) 11/18/20 04:15 Total Bilirubin 0.40 mg/dL (0.2-1.0) 11/18/20 04:15 AST 19 Units/L (15-37) 11/18/20 04:15 ALT 16 Units/L (12-78) 11/18/20 04:15 Alkaline Phosphatase 29 Units/L (46-116) L 11/18/20 04:15 Creatine Kinase 57 Units/L (39-308) 11/17/20 23:08 CK-MB (CK-2) < 1.0 ng/mL (0-4.0) 11/17/20 23:08 CK/CKMB % Calc 1.8 % (<4) 11/17/20 23:08 Troponin I < 0.02 ng/mL (0-1.5) 11/17/20 23:08 Total Protein 6.2 g/dL (6.4-8.2) L 11/18/20 04:15 Albumin 3.0 g/dL (3.4-5.0) L 11/18/20 04:15 Globulin 3.2 g/dL (2.5-4.5) 11/18/20 04:15 Albumin/Globulin Ratio 0.9 Ratio (1.1-2.1) L 11/18/20 04:15 Specimen Type Clean catch urine 11/16/20 18:59 Urine Color Yellow (YELLOW) 11/16/20 18:59 Urine Appearance Clear (CLEAR) 11/16/20 18:59 Urine pH 5.0 (5.0 - 8.0) 11/16/20 18:59 Ur Specific [place] 1.015 (1.000-1.030) 11/16/20 18:59 Urine Protein Negative (NEGATIVE) 11/16/20 18:59 Urine Glucose (UA) Negative (NEGATIVE) 11/16/20 18:59 Urine Ketones Negative (NEGATIVE) 11/16/20 18:59 Urine Occult Blood Negative (NEGATIVE) 11/16/20 18:59 Urine Nitrite Negative (NEGATIVE) 11/16/20 18:59 Urine Bilirubin Negative (NEGATIVE) 11/16/20 18:59 Urine Urobilinogen Normal (NORMAL) 11/16/20 18:59 Ur Leukocyte Esterase Negative (NEGATIVE) 11/16/20 18:59 SARS CoV-2 RNA Rapid MESSI Negative (NEGATIVE) 11/16/20 13:28 - Plan (1) Hypotension Status: Acute Qualifiers: Hypotension type: unspecified hypotension type Qualified Code(s): I95.9 - Hypotension, unspecified Plan: NORMAL SALINE AT 75 ML/HR, ENTRESTO 24/26MG PO BID, LOVENOX 30MG SC DAILY, ECOTRIN 81MG PO DAILY, LIPITOR 40MG PO HS, COREG 25MG PO BID FOR HEART FAILURE, TRICOR 160MG PO HS, NEURONTIN 300MG PO IN THE MORING AND 600MG PO HS, LEVAQUIN 500MG PO DAILY, SYNTHROID 137MCG PO DAILY, SINGULAIR 10MG PO HS, PROTONIX 40MG PO DAILY, FLOMAX 0.4MG PO HS (2) Acute renal insufficiency Status: Acute (3) Generalized weakness Status: Acute
== END 2020-11-18 09:50 | disposition home or self-care (01) ==
LOC: MED/SURG
PROVIDERS: ADMIT Internal Medicine; ATTEND Internal Medicine

== ENCOUNTER 2022-02-15 11:10 | Observation (INO) ==
--- NOTE | 2022-02-15 11:25 | DR.DIZZY ---
HPI Time seen Time Seen by Provider: 02/15/22 11:25 Complaint Chief Complaint Doctor Comments: 76 y/o male presents for evaluation. Has been having episodes of near syncope, with standing, over the past several days. Worsened this am at pulmonary rehab. Was occurring about once/day, had 4 episodes this am. PT poor historian. Denies any known chest pain, shortness of breath, nausea, vomiting or diarrhea. NO report of fever, chills. Nurses Notes Reviewed Nurses Notes Review: Yes Source History Provided: Patient and Significant Other Context Stroke Symptoms: None PMH PMH Past Medical History: Anxiety, Coronary Artery Disease, Diabetes, Dyslipidemia, GERD, Hypertension, Hypothyroidism and HI Past Surgical History: Yes Surgical History: Abdominal Surgery, Angioplasty/Stents and Other Family History Family Medical History: Hypertension Social History Does patient currently use any type of tobacco product: No Alcohol Use: None Do you use any recreational Drugs:: No ROS Review of Systems Constitutional: Weakness Eyes: No Symptoms Reported ENTM: No Symptoms Reported Respiratoy: No Symptoms Reported Cardiovascular: No Symptoms Reported Gastrointestinal/Abdominal: No Symptoms Reported Genitourinary: No Symptoms Reported Neurological: Weakness and Dizziness Musculoskeletal: No Symptoms Reported Integumentary: No Symptoms Reported Hematologic/Lymphatic: No Symptoms Reported All Other Systems: Reviewed and Negative PE Vital Signs Vitals: Temperature 98.2 F Pulse Rate 69 Respiratory Rate 30 Blood Pressure [Left Arm] 144/74 Blood Pressure [Standing] 90/51 Blood Pressure [Sitting] 126/70 Blood Pressure 173/80 O2 Sat by Pulse Oximetry 96 General General Appearance: Alert and In No Apparent Distress Head Head Exam: Normal Inspection Eyes Eye exam: PERRL and EOMI ENT ENT Exam: Normal Exam and Mucous Membranes Moist Neck Neck Exam: Normal Inspection and Full ROM; negative Tenderness Respiratory Respiratory Exam: Normal Lung Sounds Bilat; negative Accessory Muscle Use or Respiratory Distress Cardiovascular Cardiovascular Exam: Regular Rate, Normal Rhythm and Normal Heart Sounds Abdominal Exam Abdominal Exam: Normal Inspection, Normal Bowel Sounds and Soft; negative Te nderness Extremeties Extremities Exam: Normal Inspection and Full ROM; negative Tenderness or Edema Neurologic Neurological Exam: Alert and CN II-XII Intact; negative Motor Sensory Deficit Skin Skin Exam: Warm and Dry MDM Differential Diagnosis Differential Diagnosis: Dehydration, Electrolyte disorder and Other (othostatic hypotension) COURSE Treatment Treatment: 76 y/o mle with worsening dizziness with standing, occurred 4x this am at pulmonary rehab. BP changed from 127/66 laying, to 96/55 with standing. Asymptomatic at rest. W/u initiated. Pt given IV fluids. 1456 - labs overall acceptable, troponin negative. EKG with paced rhythym. CXR without acute abnormalities. Had brief run of VTach on the monitor, about 2 secs. Discussed with his attending, Dr Wiley, will admit. ROR Labs Reviewed Laboratory Results Reviewed?: Yes Result Diagrams: 02/15/22 13:07 02/15/22 13:07 Laboratory: WBC 7.9 X10^3/uL (3.6-10.0) 02/15/22 13:07 RBC 4.12 X10^6/uL (4.7-6.0) L 02/15/22 13:07 Hgb 12.5 g/dL (13.5-18.0) L 02/15/22 13:07 Hct 35.5 % (42.0-54.0) L 02/15/22 13:07 MCV 86.2 fL (80.0-100.0) 02/15/22 13:07 MCH 30.3 pg (27.0-34.0) 02/15/22 13:07 MCHC 35.2 g/dL (33.0-35.0) H 02/15/22 13:07 RDW 13.5 % (11.6-16.5) 02/15/22 13:07 Plt Count 125 X10^3/uL (150.0-450.0) L 02/15/22 13:07 MPV 8.9 fL (7.4-11.0) 02/15/22 13:07 Neut % (Auto) 74.9 % (42.0-75.0) 02/15/22 13:07 Lymph % (Auto) 15.7 % (21.0-51.0) L 02/15/22 13:07 [place] % (Auto) 6.7 % (0.0-13.0) 02/15/22 13:07 Eos % (Auto) 1.6 % (0.9-2.9) 02/15/22 13:07 Baso % (Auto) 1.1 % (0.2-1.0) H 02/15/22 13:07 Neut # (Auto) 5.9 x10^3/uL (2.2-4.8) H 02/15/22 13:07 Lymph # (Auto) 1.2 X10^3/uL (1.3-2.9) L 02/15/22 13:07 Wood # (Auto) 0.5 x10^3/uL (0.3-0.8) 02/15/22 13:07 Eos # (Auto) 0.1 x10^3/uL (0.0-0.2) 02/15/22 13:07 Baso # (Auto) 0.1 X10^3/uL (0.0-0.1) 02/15/22 13:07 Absolute Nucleated RBC 0.0 /100WBC 02/15/22 13:07 Sodium 137 mmol/L (136-145) 02/15/22 13:07 Corrected Sodium 138 mmol/L (136-145) 02/15/22 13:07 Potassium 4.3 mmol/L (3.5-5.1) 02/15/22 13:07 Chloride 102 mmol/L (98-107) 02/15/22 13:07 Carbon Dioxide 29.1 mmol/L (21-32) 02/15/22 13:07 BUN 19 mg/dL (7-18) H 02/15/22 13:07 Creatinine 1.65 mg/dL (0.70-1.30) H 02/15/22 13:07 Est GFR (MDRD) Af Amer 52 (>60) L 02/15/22 13:07 Est GFR (MDRD) Non-Af 43 (>60) L 02/15/22 13:07 Glucose 128 mg/dL (65-99) H 02/15/22 13:07 Calcium 8.6 mg/dL (8.5-10.1) 02/15/22 13:07 Corrected Calcium TNP 02/15/22 13:07 Total Bilirubin 0.50 mg/dL (0.2-1.0) 02/15/22 13:07 AST 25 Units/L (15-37) 02/15/22 13:07 ALT 22 Units/L (12-78) 02/15/22 13:07 Alkaline Phosphatase 89 Units/L (46-116) 02/15/22 13:07 Creatine Kinase 68 Units/L (39-308) 02/15/22 13:07 Troponin I High Sens 8.1 ng/L (4.0-60.0) 02/15/22 13:07 Total Protein 7.0 g/dL (6.4-8.2) 02/15/22 13:07 Albumin 3.7 g/dL (3.4-5.0) 02/15/22 13:07 Globulin 3.3 g/dL (2.5-4.5) 02/15/22 13:07 Albumin/Globulin Ratio 1.1 Ratio (1.1-2.1) 02/15/22 13:07 SARS-CoV-2 (PCR) Negative (NEGATIVE) 02/15/22 13:24 Labs overall acceptable XRAY XRAY Interpreted by: Self X-ray Results: CXR with cardiomegaly, no acute abnormalities EKG Rate: 70 [place]: RAD Rhythm: Paced (AV dual paced) ST: Nonsp Opioid Opioid Risk Tool Age (Jesus box if 16-45): No History of Preadolescent Sexual Abuse: No Total: 0 Total Score Risk Category: Low Risk Copyright: [address]vin [address] predicting aberrant behaviors Discharge Plan Diagnosis Discharge Problem: Orthostatic hypotension Discharge Plan Patient Disposition: 01 HOME, SELF-CARE Condition: Stable Prescriptions: No Action atorvastatin [Lipitor] 40 mg tablet 40 mg PO HS aspirin [Aspir-81] 81 mg Tablet,Delayed Release (Dr/Ec) 81 mg PO DAILY gabapentin [Neurontin] 300 mg capsule 300 mg PO DAILY Rx Instructions: TAKE ONE CAPSULE EVERY MORNING AND TWO AT BEDTIME montelukast [Singulair] 10 mg tablet 10 mg PO DAILY levothyroxine 137 mcg tablet 137 mcg PO DAILY donepezil 10 mg tablet 10 mg PO DAILY memantine 5 mg tablet 5 mg PO BID ipratropium-albuterol 0.5 mg-3 mg(2.5 mg base)/3 mL solution for nebulization 0.5 ml INHALATION PRN PRN Label Comments: [NO ORIGINAL SIG] tamsulosin 0.4 mg capsule 1 cap PO QDAY pantoprazole 40 mg tablet,delayed release (DR/EC) 1 tab PO QDAY Centratex 106 mg iron- 1 mg Capsule 106 cap PO DAILY Trelegy Ellipta 200-62.5-25 mcg blister with device 1 puff inhalation QDAY sertraline 50 mg Tablet 50 mg PO DAILY Health Concerns: Post Hospitalization: new medications and changes needed to prevent readmission or further decline. Pt educated and given instructions on all concerns. Plan of Treatment: Continue with present treatment and follow up plan. Pt is to keep follow up karon ointment as instructed and take medications as ordered. Orders to Discharge Patient Discharge Orders: Discharge (Routine); Ordered 02/15/22 Ordered By: Ananda Fallon Transfer (Routine); Ordered 02/15/22 Ordered By: Ananda Fallon Follow ups/Referrals Follow ups/Referrals: Iban Wiley [Primary Care Provider] - 3 days Instructions Stand Alone Forms: Precautions for COVID19, [facility], Patient Portal, S ocial Distancing
[2022-02-15] MEDS ORDERED: NS 500 ML IV 500 ML IV ONE ×2 (12:54→13:03)
[2022-02-15 13:18] LABS: BASOPHILS # (AUTO) 0.1 X10^3/uL (0.0-0.1); BASOPHILS % (AUTO) 1.1 % (0.2-1.0); EOSINOPHILS # (AUTO) 0.1 x10^3/uL (0.0-0.2); EOSINOPHILS % (AUTO) 1.6 % (0.9-2.9); HEMATOCRIT 35.5 % (42.0-54.0); HEMOGLOBIN 12.5 g/dL (13.5-18.0); LYMPHOCYTES # (AUTO) 1.2 X10^3/uL (1.3-2.9); LYMPHOCYTES % (AUTO) 15.7 % (21.0-51.0); MEAN CORPUSCULAR HEMOGLOBIN 30.3 pg (27.0-34.0); MEAN CORPUSCULAR HGB CONC 35.2 g/dL (33.0-35.0); MEAN CORPUSCULAR VOLUME 86.2 fL (80.0-100.0); MEAN PLATELET VOLUME 8.9 fL (7.4-11.0); MONOCYTES # (AUTO) 0.5 x10^3/uL (0.3-0.8); MONOCYTES % (AUTO) 6.7 % (0.0-13.0); NEUTROPHILS # (AUTO) 5.9 x10^3/uL (2.2-4.8); NEUTROPHILS % (AUTO) 74.9 % (42.0-75.0); RED BLOOD COUNT 4.12 X10^6/uL (4.7-6.0); RED CELL DISTRIBUTION WIDTH 13.5 % (11.6-16.5); WHITE BLOOD COUNT 7.9 X10^3/uL (3.6-10.0)
[2022-02-15 13:40] LABS: ALANINE AMINOTRANSFERASE 22 Units/L (12-78); ALBUMIN 3.7 g/dL (3.4-5.0); ALKALINE PHOSPHATASE 89 Units/L (46-116); ASPARTATE AMINO TRANSFERASE 25 Units/L (15-37); BLOOD UREA NITROGEN 19 mg/dL (7-18); CALCIUM 8.6 mg/dL (8.5-10.1); CARBON DIOXIDE 29.1 mmol/L (21-32); CHLORIDE 102 mmol/L (98-107); COR NA(FOR HYPERGLY) 138 mmol/L (136-145); CREATINE KINASE 68 Units/L (39-308); CREATININE 1.65 mg/dL (0.70-1.30); SODIUM 137 mmol/L (136-145); eGFR NON BLACK RACES 43 (>60)
--- NOTE | 2022-02-15 15:45 | RAD ---
HISTORYWEAKNESS, DIZZINESS CAD, HTN, TN SX: ABDOMINAL, ANGIOPLASTYSTUDYCHEST, 1 VIEWCOMPARISONMay 2021FINDINGSThe trachea is midline. The cardiac silhouette is enlarged. Cardiac pacing leads/pacing device are both unchanged. The lungs are clear without focal infiltrate or effusion. Chronic interstitial lung changes remain as well. The bony thorax is unremarkable.IMPRESSIONEnlarged cardiac silhouette without acute cardiopulmonary disease or changes.Electronically signed by: LETY BAILEY III (Feb 15, 2022 15:43:32)
[2022-02-15] MEDS ORDERED: DUONEB 0.5 MG/3 MG (3 mL) NEB PRN (16:26)
[2022-02-15] MEDS ORDERED: PATIENT'S HOME MEDICATION (Fluticasone-Umeclidin-Vilanter [Trelegy Ellipta] 200-62.5-25 mc IN SCH (16:26)
[2022-02-15 17:20] VITALS: BMI 26.1
[2022-02-15] MEDS: NS 1,000 ML IV 1,000 ML IV SCH (17:57)
[2022-02-15] MEDS: PULMICORT NEB TX 0.5 MG NEB SCH (20:25)
[2022-02-15] MEDS: DUONEB 0.5 MG/3 MG (3 mL) NEB SCH (20:25)
[2022-02-15] MEDS: COREG TAB 6.25 MG PO SCH (20:34)
[2022-02-15] MEDS: LIPITOR TAB 40 MG PO SCH (20:34)
[2022-02-15] MEDS: NAMENDA TAB 10 MG PO SCH (20:35)
[2022-02-15] MEDS: NEURONTIN CAP 300 MG PO SCH (20:35)
[2022-02-16] MEDS: NS 1,000 ML IV 1,000 ML IV SCH ×2 (05:29→18:06)
[2022-02-16 06:02] LABS: BASOPHILS # (AUTO) 0.1 X10^3/uL (0.0-0.1); BASOPHILS % (AUTO) 1.3 % (0.2-1.0); EOSINOPHILS # (AUTO) 0.2 x10^3/uL (0.0-0.2); EOSINOPHILS % (AUTO) 3.6 % (0.9-2.9); HEMATOCRIT 34.2 % (42.0-54.0); HEMOGLOBIN 11.9 g/dL (13.5-18.0); LYMPHOCYTES # (AUTO) 1.4 X10^3/uL (1.3-2.9); LYMPHOCYTES % (AUTO) 19.6 % (21.0-51.0); MEAN CORPUSCULAR HEMOGLOBIN 30.1 pg (27.0-34.0); MEAN CORPUSCULAR HGB CONC 34.8 g/dL (33.0-35.0); MEAN CORPUSCULAR VOLUME 86.3 fL (80.0-100.0); MEAN PLATELET VOLUME 9.7 fL (7.4-11.0); MONOCYTES # (AUTO) 0.6 x10^3/uL (0.3-0.8); MONOCYTES % (AUTO) 8.1 % (0.0-13.0); NEUTROPHILS # (AUTO) 4.6 x10^3/uL (2.2-4.8); NEUTROPHILS % (AUTO) 67.4 % (42.0-75.0); RED BLOOD COUNT 3.96 X10^6/uL (4.7-6.0); RED CELL DISTRIBUTION WIDTH 13.1 % (11.6-16.5); WHITE BLOOD COUNT 6.9 X10^3/uL (3.6-10.0)
[2022-02-16 06:24] LABS: ALANINE AMINOTRANSFERASE 19 Units/L (12-78); ALBUMIN 3.2 g/dL (3.4-5.0); ALKALINE PHOSPHATASE 75 Units/L (46-116); ASPARTATE AMINO TRANSFERASE 22 Units/L (15-37); BLOOD UREA NITROGEN 15 mg/dL (7-18); CALCIUM 8.2 mg/dL (8.5-10.1); CARBON DIOXIDE 28.5 mmol/L (21-32); CHLORIDE 106 mmol/L (98-107); COR CA(FOR HYPOALB) 8.8 mg/dL (8.5-10.1); CREATINE KINASE 54 Units/L (39-308); CREATININE 1.33 mg/dL (0.70-1.30); SODIUM 142 mmol/L (136-145); TOTAL PROTEIN 6.5 g/dL (6.4-8.2); eGFR NON BLACK RACES 55 (>60)
[2022-02-16] MEDS: DUONEB 0.5 MG/3 MG (3 mL) NEB SCH ×4 (08:40→21:40)
[2022-02-16] MEDS: PULMICORT NEB TX 0.5 MG NEB SCH ×2 (08:40→21:40)
[2022-02-16] MEDS: COREG TAB 6.25 MG PO SCH (09:16)
[2022-02-16] MEDS: PROTONIX TAB 40 MG PO SCH (09:16)
[2022-02-16] MEDS: ARICEPT TAB 10 MG PO SCH (09:17)
[2022-02-16] MEDS: NAMENDA TAB 10 MG PO SCH ×2 (09:17→21:48)
[2022-02-16] MEDS: ASPIRIN EC 81 MG PO SCH (09:17)
[2022-02-16] MEDS: FLOMAX PO SCH (09:17)
[2022-02-16] MEDS: NEURONTIN CAP 300 MG PO SCH ×2 (09:17→21:48)
[2022-02-16] MEDS: SYNTHROID 137 mcg TAB PO SCH (09:17)
[2022-02-16] MEDS: ZOLOFT PO SCH (09:17)
[2022-02-16] MEDS: SINGULAIR TAB 10 MG PO SCH (09:17)
[2022-02-16] MEDS ORDERED: POTASSIUM CHLORIDE LIQ 20 MEQ UDC PO PRN (13:22)
[2022-02-16] MEDS ORDERED: K-RIDER 10 MEQ/NS 100 ML 10 MEQ/100 ML BAG IV PRN (13:22)
[2022-02-16] MEDS ORDERED: MICRO K EXTEN CAP 10 MEQ PO PRN (13:22)
[2022-02-16] MEDS ORDERED: KLOR-CON PO PRN (13:22)
[2022-02-16] MEDS ORDERED: POTASSIUM CHL 40 MEQ/NS 0.45% 500 ML IV PRN (13:22)
[2022-02-16] MEDS ORDERED: K-DUR TAB 20 MEQ PO PRN (13:22)
[2022-02-16] MEDS ORDERED: POTASSIUM CHL 60 MEQ/NS 0.45% 500 ML IV PRN (13:22)
[2022-02-16] MEDS: ZESTRIL TAB 10 MG PO SCH ×2 (13:28→21:49)
[2022-02-16] MEDS: CORDARONE TAB 200 MG PO SCH ×2 (13:28→16:38)
[2022-02-16] MEDS: TOPROL XL PO SCH (13:29)
[2022-02-16] MEDS: LOVENOX INJ 40 MG SYR SC SCH (13:31)
[2022-02-16] MEDS ORDERED: CATAPRES TAB 0.1 MG PO ONE (16:01)
[2022-02-16] MEDS ORDERED: ZESTRIL TAB 10 MG PO ONE (16:05)
[2022-02-16] MEDS: MAGNESIUM SULFATE 1 GRAM/100 mL PREMIX 1 G/100 ML BAG IV PRN ×2 (16:18→18:06)
--- NOTE | 2022-02-16 17:33 | DR.H&P ---
H&P - History & Physical for Day of: H&P Date: 02/15/22 - Chief Complaint Chief Complaint: WEAKNESS, DIZZINESS, NEAR SYNCOPE - History of Present Illness History of Present Illness: IS A 76 YEAR OLD PATIENT OF OURS. HE PRESENTED TO THE ER YESTETDAY COMPLAINTS OF WEAKNESS, DIZZINESS, AND NEAR SYNCOPE. SYMPTOMS HAVE BEEN OCCURING ABOUT ONCE DAILY FOR THE PAST WEEK, HOWEVER, HE HAD 4 EPISODES AT PULMONARY REHAB TODAY. HE REPORTS THAT SYMPTOMS ARE WORSE WHEN MOVING FROM A LYING TO SITTING OR STANDING POSITION. HE DENIES CHEST PAIN, SHORTNESS OF BREATH, NAUSEA, VOMITING, OR DIARRHEA. HIS PMH INCLUDES CAD, AL, PACEMAKER, DEFIBRILLATOR, HYPERLIPIDEMIA, HTN, GERD, DM II, HYPOTHYROIDISM, SKIN CANCER, ANXIETY, ABDOMINAL SURGERY, AND CARDIAC STENTS. ON ARRIVAL TO THE HOSPITAL, VITALS WERE 98.2-75-15-97%-131/63. ORTHOSTATIC BLOOD PRESSURES WERE OBTAINED. BP CHANGED FROM 127/66 LAYING, TO 96/55 WITH STANDING. LABS WERE OBTAINED. WBC 7.9 RBC 4.12, HGB 12.5, HCT 35.5, PLT COUNT 125, SODIUM 137, POTASSIUM 4.3, CHLORIDE 102, CARBON DIOXIDE 29.1, BUN 19, CREATININE 1.65, GLUCOSE 128, CALCIUM 8.6, TOTAL BILI 0.50, AST 25, ALT 22, ALK PHOS 89, TOTAL PROTEIN 7.0, ALBUMIN 3.7. CARDIAC ENZYMES WERE WITHIN NORMAL LIMITS. URINALYSIS WAS UNREMARKABLE. COVID-19 NEGATIVE. A CHEST XRAY WAS OBTAINED AND REVEALED: The trachea is midline. The cardiac silhouette is enlarged. Cardiac pacing leads/pacing device are both unchanged. The lungs are clear without focal infiltrate or effusion. Chronic interstitial lung changes remain as well. The bony thorax is unremarkable. EKG REVEALED A PACED RHYTHM OF 70. 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 IN THE ER, HE WAS GIVEN A ONE LITER BOLUS OF NORMAL SALINE. HE WAS ADMITTED TO THE HOSPITAL FOR FURTHER EVALUATION AND TREATMENT OF ORTHOSTATIC HYPOTENSION, ARRHYTHMIAS, GENERALIZED WEAKNESS. HE WAS STARTED ON NORMAL SALINE AT 80 ML/HR, COREG 6.25MG PO BID, LOVENOX 40MG SC DAILY, DUONEBS QID, PULMICORT NEBS BID, THE POTASSIUM AND MAGNESIUM PROTOCOLS, AND HIS HOME MEDICATIONS WERE RESUMED. WE WILL CONSULT , GUT DROPPER, TO EVALUATE PATIENT. WE WILL OBTAIN SERIAL CARDIAC ENZYMES AND EKGs. OTHERWISE, WE WILL FOLLOW UP WITH AM LABS AND CONTINUE TO MONITOR. TIME SPENT ON CLINICAL ASSESSMENT, REVIEWING LABS AND IMAGING, DECISION MAKING, AND DOCUMENTATION GREATER THAN 75 MINUTES. - Past Medical History Past Medical History: AL, Coronary Artery Disease, Hypertension, Dyslipidemia, Diabetes, Anxiety, Hypothyroidism, GERD - Past Surgical History Surgical History: Abdominal Surgery, Angioplasty/Stents, Other - Family History Family Medical History: Hypertension - Social History Does patient currently use any type of tobacco product: No Have you used tobacco products in the last 12 months: No Type of Tobacco Use: None Does any household member use tobacco: No Alcohol Use: None - Medications Home Medications: No Known Drug Allergies Allergy (Verified 11/29/21 17:40) CONTINUE taking the following medications fluticasone fur. 200 mcg-umeclid 62.5 mcg-vilant 25 mcg inhalat.powder (Trelegy Ellipta) 1 puff inhalation QDAY 02/15/22 [History] ipratropium 0.5 mg-albuterol 3 mg (2.5 mg base)/3 mL nebulization soln 0.5 ml inhalation PRN PRN 02/15/22 [History] iron-folic acid-multivitamin, mineral comb#15 106 mg iron-1 mg capsule (Centratex) 106 cap PO DAILY 02/15/22 [History] pantoprazole 40 mg tablet,delayed release 1 tab PO QDAY 02/15/22 [History] sertraline 50 mg tablet 50 mg PO DAILY 02/15/22 [History] tamsulosin 0.4 mg capsule 1 cap PO QDAY 02/15/22 [History] - Review of Systems Constitutional: Weakness Eyes: No Symptoms Reported ENT: No Symptoms Reported Respiratory: No Symptoms Reported Cardiovascular: Light Headedness Gastrointestinal: No Symptoms Reported Genitourinary: No Symptoms Reported Musculoskeletal: No Symptoms Reported Skin: No Symptoms Reported Neurological: Weakness - Physical Exam Vital Signs: Temperature 98.4 F Pulse Rate [Left Brachial] 68 Pulse Rate 88 Respiratory Rate 20 Blood Pressure [Left Arm] 160/73 Blood Pressure [Standing] 90/51 Blood Pressure [Sitting] 126/70 Blood Pressure 136/97 O2 Sat by Pulse Oximetry 93 Oriented: Normal Eyes: Normal Ear: Normal Nose: Normal Throat: Normal Respiratory: Diminished Throughout Cardiovascular: Irregular : Normal Auscultation: Bowel Sounds: Normal Palpation: Normal Tenderness: Normal Skin: Normal Musculoskeletal: Normal Psychiatric: Normal Mood Description: Calm Affect: Normal Speech Pattern: Clear - Assessment/Plan (1) Orthostatic hypotension Status: Acute Plan: ADMIT, NORMAL SALINE AT 80 ML/HR, COREG 6.25MG PO BID, LOVENOX 40MG SC DAILY, DUONEBS QID, PULMICORT NEBS BID, THE POTASSIUM AND MAGNESIUM PROTOCOLS, AND HIS HOME MEDICATIONS WERE RESUMED (2) Cardiac arrhythmia Qualifiers: Arrhythmia type: ventricular tachycardia Qualified Code(s): I47.2 - Ventricular tachycardia Status: Acute (3) Generalized weakness Status: Acute - Allergies Allergies/Adverse Reactions: Allergies Allergy/AdvReac Type Severity Reaction Status Date / Time No Known Drug Allergies Allergy Verified 11/29/21 17:40
[2022-02-16] MEDS: LIPITOR TAB 40 MG PO SCH (21:48)
[2022-02-17 05:47] LABS: BASOPHILS # (AUTO) 0.1 X10^3/uL (0.0-0.1); BASOPHILS % (AUTO) 1.4 % (0.2-1.0); EOSINOPHILS # (AUTO) 0.3 x10^3/uL (0.0-0.2); EOSINOPHILS % (AUTO) 4.8 % (0.9-2.9); HEMATOCRIT 35.2 % (42.0-54.0); HEMOGLOBIN 12.1 g/dL (13.5-18.0); LYMPHOCYTES # (AUTO) 1.2 X10^3/uL (1.3-2.9); LYMPHOCYTES % (AUTO) 17.8 % (21.0-51.0); MEAN CORPUSCULAR HEMOGLOBIN 29.6 pg (27.0-34.0); MEAN CORPUSCULAR HGB CONC 34.4 g/dL (33.0-35.0); MEAN CORPUSCULAR VOLUME 86.2 fL (80.0-100.0); MEAN PLATELET VOLUME 9.7 fL (7.4-11.0); MONOCYTES # (AUTO) 0.7 x10^3/uL (0.3-0.8); MONOCYTES % (AUTO) 9.9 % (0.0-13.0); NEUTROPHILS # (AUTO) 4.4 x10^3/uL (2.2-4.8); NEUTROPHILS % (AUTO) 66.1 % (42.0-75.0); RED BLOOD COUNT 4.09 X10^6/uL (4.7-6.0); RED CELL DISTRIBUTION WIDTH 13.1 % (11.6-16.5); WHITE BLOOD COUNT 6.6 X10^3/uL (3.6-10.0)
[2022-02-17 06:11] LABS: ALANINE AMINOTRANSFERASE 21 Units/L (12-78); ALBUMIN 3.4 g/dL (3.4-5.0); ALKALINE PHOSPHATASE 82 Units/L (46-116); ASPARTATE AMINO TRANSFERASE 27 Units/L (15-37); BLOOD UREA NITROGEN 17 mg/dL (7-18); CALCIUM 8.6 mg/dL (8.5-10.1); CARBON DIOXIDE 29.1 mmol/L (21-32); CHLORIDE 105 mmol/L (98-107); CREATININE 1.27 mg/dL (0.70-1.30); SODIUM 141 mmol/L (136-145); TOTAL PROTEIN 6.7 g/dL (6.4-8.2); eGFR NON BLACK RACES 58 (>60)
[2022-02-17] MEDS: CORDARONE TAB 200 MG PO SCH ×2 (06:25→17:23)
[2022-02-17] MEDS: NS 1,000 ML IV 1,000 ML IV SCH ×3 (06:27→21:43)
[2022-02-17] MEDS: DUONEB 0.5 MG/3 MG (3 mL) NEB SCH ×4 (09:00→21:13)
[2022-02-17] MEDS: PULMICORT NEB TX 0.5 MG NEB SCH ×2 (09:00→21:14)
[2022-02-17] MEDS: ASPIRIN EC 81 MG PO SCH (09:23)
[2022-02-17] MEDS: TOPROL XL PO SCH (09:23)
[2022-02-17] MEDS: PROTONIX TAB 40 MG PO SCH (09:23)
[2022-02-17] MEDS: ZOLOFT PO SCH (09:23)
[2022-02-17] MEDS: SINGULAIR TAB 10 MG PO SCH (09:23)
[2022-02-17] MEDS: ARICEPT TAB 10 MG PO SCH (09:23)
[2022-02-17] MEDS: ZESTRIL TAB 10 MG PO SCH ×2 (09:24→21:44)
[2022-02-17] MEDS: SYNTHROID 137 mcg TAB PO SCH (09:24)
[2022-02-17] MEDS: NAMENDA TAB 10 MG PO SCH ×2 (09:24→21:45)
[2022-02-17] MEDS: NEURONTIN CAP 300 MG PO SCH ×2 (09:24→21:45)
[2022-02-17] MEDS: LOVENOX INJ 40 MG SYR SC SCH (09:25)
[2022-02-17] MEDS: FLOMAX PO SCH (09:25)
[2022-02-17] MEDS: LIPITOR TAB 40 MG PO SCH (21:44)
[2022-02-18 05:51] LABS: BASOPHILS # (AUTO) 0.1 X10^3/uL (0.0-0.1); BASOPHILS % (AUTO) 1.2 % (0.2-1.0); EOSINOPHILS # (AUTO) 0.3 x10^3/uL (0.0-0.2); EOSINOPHILS % (AUTO) 3.9 % (0.9-2.9); HEMATOCRIT 33.7 % (42.0-54.0); HEMOGLOBIN 11.8 g/dL (13.5-18.0); LYMPHOCYTES # (AUTO) 1.1 X10^3/uL (1.3-2.9); LYMPHOCYTES % (AUTO) 15.2 % (21.0-51.0); MEAN CORPUSCULAR HEMOGLOBIN 30.3 pg (27.0-34.0); MEAN CORPUSCULAR HGB CONC 35.1 g/dL (33.0-35.0); MEAN CORPUSCULAR VOLUME 86.5 fL (80.0-100.0); MEAN PLATELET VOLUME 9.1 fL (7.4-11.0); MONOCYTES # (AUTO) 0.6 x10^3/uL (0.3-0.8); MONOCYTES % (AUTO) 8.6 % (0.0-13.0); NEUTROPHILS # (AUTO) 5.1 x10^3/uL (2.2-4.8); NEUTROPHILS % (AUTO) 71.1 % (42.0-75.0); RED BLOOD COUNT 3.89 X10^6/uL (4.7-6.0); RED CELL DISTRIBUTION WIDTH 13.2 % (11.6-16.5); WHITE BLOOD COUNT 7.2 X10^3/uL (3.6-10.0)
[2022-02-18 05:58] LABS: ALANINE AMINOTRANSFERASE 19 Units/L (12-78); ALBUMIN 3.2 g/dL (3.4-5.0); ALKALINE PHOSPHATASE 80 Units/L (46-116); ASPARTATE AMINO TRANSFERASE 21 Units/L (15-37); BLOOD UREA NITROGEN 20 mg/dL (7-18); CALCIUM 8.1 mg/dL (8.5-10.1); CARBON DIOXIDE 29.8 mmol/L (21-32); CHLORIDE 105 mmol/L (98-107); COR CA(FOR HYPOALB) 8.7 mg/dL (8.5-10.1); COR NA(FOR HYPERGLY) 140 mmol/L (136-145); CREATININE 1.29 mg/dL (0.70-1.30); SODIUM 140 mmol/L (136-145); TOTAL PROTEIN 6.5 g/dL (6.4-8.2); eGFR NON BLACK RACES 57 (>60)
[2022-02-18] MEDS: CORDARONE TAB 200 MG PO SCH (06:01)
[2022-02-18] MEDS: NS 1,000 ML IV 1,000 ML IV SCH (06:34)
[2022-02-18] MEDS: ZESTRIL TAB 10 MG PO SCH (09:11)
[2022-02-18] MEDS: PROTONIX TAB 40 MG PO SCH (09:11)
[2022-02-18] MEDS: NAMENDA TAB 10 MG PO SCH (09:11)
[2022-02-18] MEDS: ASPIRIN EC 81 MG PO SCH (09:11)
[2022-02-18] MEDS: SYNTHROID 137 mcg TAB PO SCH (09:12)
[2022-02-18] MEDS: NEURONTIN CAP 300 MG PO SCH (09:12)
[2022-02-18] MEDS: SINGULAIR TAB 10 MG PO SCH (09:12)
[2022-02-18] MEDS: TOPROL XL PO SCH (09:12)
[2022-02-18] MEDS: FLOMAX PO SCH (09:12)
[2022-02-18] MEDS: ARICEPT TAB 10 MG PO SCH (09:12)
[2022-02-18] MEDS: LOVENOX INJ 40 MG SYR SC SCH (09:13)
[2022-02-18] MEDS: ZOLOFT PO SCH (09:13)
[2022-02-18] MEDS: PULMICORT NEB TX 0.5 MG NEB SCH (09:25)
[2022-02-18] MEDS: DUONEB 0.5 MG/3 MG (3 mL) NEB SCH ×2 (09:25→13:25)
[2022-02-18 14:17] VITALS: BP 185/85
== END 2022-02-18 13:40 | disposition home or self-care (01) ==
LOC: ER 11:10 → MED/SURG 11:10
PROVIDERS: ADMIT Internal Medicine; ATTEND Internal Medicine
DX: R53.1 Weakness; F41.8 Other specified anxiety disorders; I47.2 Ventricular tachycardia; E78.2 Mixed hyperlipidemia; E11.65 Type 2 diabetes mellitus with hyperglycemia; Z95.0 Presence of cardiac pacemaker; I10 Essential (primary) hypertension; R26.89 Other abnormalities of gait and mobility; K21.9 Gastro-esophageal reflux disease without esophagitis; R42 Dizziness and giddiness; E03.8 Other specified hypothyroidism; I25.10 Atherosclerotic heart disease of native coronary artery without angina pectoris; I95.1 Orthostatic hypotension

== ENCOUNTER 2022-04-12 15:21 | Observation (INO) ==
[2022-04-12 17:24] LABS: BASOPHILS # (AUTO) 0.1 X10^3/uL (0.0-0.1); BASOPHILS % (AUTO) 1.1 % (0.2-1.0); EOSINOPHILS # (AUTO) 0.1 x10^3/uL (0.0-0.2); EOSINOPHILS % (AUTO) 1.6 % (0.9-2.9); HEMATOCRIT 34.5 % (42.0-54.0); LYMPHOCYTES # (AUTO) 1.2 X10^3/uL (1.3-2.9); LYMPHOCYTES % (AUTO) 15.7 % (21.0-51.0); MEAN CORPUSCULAR HEMOGLOBIN 29.8 pg (27.0-34.0); MEAN CORPUSCULAR HGB CONC 34.7 g/dL (33.0-35.0); MEAN CORPUSCULAR VOLUME 85.8 fL (80.0-100.0); MONOCYTES # (AUTO) 0.6 x10^3/uL (0.3-0.8); MONOCYTES % (AUTO) 7.5 % (0.0-13.0); NEUTROPHILS # (AUTO) 5.7 x10^3/uL (2.2-4.8); NEUTROPHILS % (AUTO) 74.1 % (42.0-75.0); RED BLOOD COUNT 4.02 X10^6/uL (4.7-6.0); RED CELL DISTRIBUTION WIDTH 13.3 % (11.6-16.5); WHITE BLOOD COUNT 7.7 X10^3/uL (3.6-10.0)
[2022-04-12 17:40] LABS: ALANINE AMINOTRANSFERASE 25 Units/L (12-78); ALBUMIN 3.8 g/dL (3.4-5.0); ALKALINE PHOSPHATASE 75 Units/L (46-116); ASPARTATE AMINO TRANSFERASE 29 Units/L (15-37); BLOOD UREA NITROGEN 30 mg/dL (7-18); CALCIUM 8.2 mg/dL (8.5-10.1); CARBON DIOXIDE 26.6 mmol/L (21-32); CHLORIDE 101 mmol/L (98-107); CREATINE KINASE 151 Units/L (39-308); CREATININE 2.89 mg/dL (0.70-1.30); SODIUM 136 mmol/L (136-145); TOTAL PROTEIN 6.8 g/dL (6.4-8.2); eGFR NON BLACK RACES 23 (>60)
[2022-04-12] MEDS: NS 1,000 ML IV 1,000 ML IV SCH (18:27)
[2022-04-12 19:17] LABS: BILIRUBIN,URINE NEGATIVE (NEGATIVE); BLOOD/HEMOGLOBIN,URINE NEGATIVE (NEGATIVE); GLUCOSE, URINE NEGATIVE (NEGATIVE); KETONES,URINE NEGATIVE (NEGATIVE); LEUKOCYTE ESTERASE ,URINE NEGATIVE (NEGATIVE); NITRITES,URINE NEGATIVE (NEGATIVE); PROTEIN,URINE 1+ (NEGATIVE); UROBILINOGEN,URINE NORMAL (NORMAL)
[2022-04-12 19:30] LABS: APPEARANCE,URINE CLEAR (CLEAR); BACTERIA,URINE TRACE /HPF (NEGATIVE); COLOR,URINE YELLOW (YELLOW); RBC,URINE 0-2 /HPF (0-3); SQUAMOUS EPITHELIAL CELL,UR FEW /HPF (NEGATIVE)
--- NOTE | 2022-04-12 23:48 | RAD ---
HISTORYSOBSTUDYCHEST, 1 VIEWCOMPARISONNone availableTECHNIQUEChest radiographic imaging, AP portable projection, 2 imagesFINDINGSMild cardiomegaly.Pacemaker in place.No focal airspace disease.No pleural effusion.No pneumothorax.No acute osseous abnormality.IMPRESSIONNo imaging findings of acute cardiopulmonary disease.Electronically signed by: Jadon Rosales (Apr 12, 2022 23:47:01)
[2022-04-13 04:58] LABS: BASOPHILS # (AUTO) 0.1 X10^3/uL (0.0-0.1); BASOPHILS % (AUTO) 1.4 % (0.2-1.0); EOSINOPHILS # (AUTO) 0.3 x10^3/uL (0.0-0.2); EOSINOPHILS % (AUTO) 4.7 % (0.9-2.9); LYMPHOCYTES # (AUTO) 1.3 X10^3/uL (1.3-2.9); LYMPHOCYTES % (AUTO) 18.6 % (21.0-51.0); MEAN CORPUSCULAR HEMOGLOBIN 30.1 pg (27.0-34.0); MEAN CORPUSCULAR HGB CONC 35.5 g/dL (33.0-35.0); MONOCYTES # (AUTO) 0.5 x10^3/uL (0.3-0.8); MONOCYTES % (AUTO) 7.8 % (0.0-13.0); NEUTROPHILS # (AUTO) 4.7 x10^3/uL (2.2-4.8); NEUTROPHILS % (AUTO) 67.5 % (42.0-75.0); RED CELL DISTRIBUTION WIDTH 13.4 % (11.6-16.5)
[2022-04-13] MEDS: NS 1,000 ML IV 1,000 ML IV SCH ×2 (05:00→19:10)
[2022-04-13 05:11] LABS: ALANINE AMINOTRANSFERASE 28 Units/L (12-78); ALBUMIN 3.4 g/dL (3.4-5.0); ALKALINE PHOSPHATASE 73 Units/L (46-116); ASPARTATE AMINO TRANSFERASE 27 Units/L (15-37); BLOOD UREA NITROGEN 26 mg/dL (7-18); CARBON DIOXIDE 28.7 mmol/L (21-32); CHLORIDE 105 mmol/L (98-107); CREATINE KINASE 130 Units/L (39-308); CREATININE 2.14 mg/dL (0.70-1.30); SODIUM 140 mmol/L (136-145); TOTAL PROTEIN 6.4 g/dL (6.4-8.2); eGFR NON BLACK RACES 32 (>60)
[2022-04-13] MEDS: LOVENOX INJ 40 MG SYR SC SCH (11:49)
[2022-04-13] MEDS ORDERED: DUONEB 0.5 MG/3 MG (3 mL) NEB PRN (13:16)
[2022-04-13] MEDS: NAMENDA TAB 10 MG PO SCH ×2 (14:45→21:07)
[2022-04-13] MEDS: CORDARONE TAB 200 MG PO SCH ×2 (14:46→21:06)
[2022-04-13] MEDS: ASPIRIN EC 81 MG PO SCH (14:46)
[2022-04-13] MEDS: HEMOCYTE-PLUS PO SCH (14:46)
[2022-04-13] MEDS: PROTONIX TAB 40 MG PO SCH (14:47)
[2022-04-13] MEDS: SINGULAIR TAB 10 MG PO SCH (14:47)
[2022-04-13] MEDS: SYNTHROID 137 mcg TAB PO SCH (14:48)
[2022-04-13] MEDS ORDERED: ZESTRIL TAB 5 MG ONE (15:07)
[2022-04-13] MEDS: ZESTRIL TAB 5 MG PO SCH ×2 (15:15→21:07)
--- NOTE | 2022-04-13 15:20 | CT ---
HISTORYWEAKNESS, TREMORS,HYPOTENSION,ANG[place],GENERALIZED WEAKNESSSTUDYBRAIN W/O CONCOMPARISONMay 2021TECHNIQUEAxial non-contrast images of the head were obtained with coronal and sagittal reformats provided.Radiation dose: 1188.90 mGy-cm total DLPFINDINGSNo abnormal areas of acute attenuation in the brain parenchyma.Witt-white differentiation remains intact.No intracranial, extra-axial, fluid collection.No hemorrhage.Periventricular chronic microvascular disease.No mass, mass effect or midline shift.Age related brain parenchymal global atrophy.No ventriculomegaly.No acute fracture.Sinuses are well aerated.Mastoid air cells are well aerated.Globes and intra-orbital contents are unremarkable.IMPRESSIONNo acute intracranial abnormality identified.Electronically signed by: Jadon Rosales (Apr 13, 2022 15:18:44)
[2022-04-13] MEDS ORDERED: CATAPRES TAB 0.1 MG PO ONE (16:35)
[2022-04-13] MEDS: ARICEPT TAB 10 MG PO SCH (21:06)
[2022-04-13] MEDS: ZOLOFT PO SCH (21:06)
[2022-04-13] MEDS: LIPITOR TAB 40 MG PO SCH (21:06)
[2022-04-14] MEDS: NS 1,000 ML IV 1,000 ML IV SCH ×4 (05:54→21:57)
[2022-04-14 06:17] LABS: BASOPHILS # (AUTO) 0.1 X10^3/uL (0.0-0.1); BASOPHILS % (AUTO) 1.2 % (0.2-1.0); EOSINOPHILS # (AUTO) 0.4 x10^3/uL (0.0-0.2); EOSINOPHILS % (AUTO) 5.8 % (0.9-2.9); HEMATOCRIT 35.6 % (42.0-54.0); HEMOGLOBIN 12.4 g/dL (13.5-18.0); LYMPHOCYTES # (AUTO) 1.5 X10^3/uL (1.3-2.9); LYMPHOCYTES % (AUTO) 20.3 % (21.0-51.0); MEAN CORPUSCULAR HEMOGLOBIN 29.7 pg (27.0-34.0); MEAN CORPUSCULAR HGB CONC 34.9 g/dL (33.0-35.0); MEAN PLATELET VOLUME 9.3 fL (7.4-11.0); MONOCYTES # (AUTO) 0.6 x10^3/uL (0.3-0.8); MONOCYTES % (AUTO) 8.4 % (0.0-13.0); NEUTROPHILS # (AUTO) 4.8 x10^3/uL (2.2-4.8); NEUTROPHILS % (AUTO) 64.3 % (42.0-75.0); RED BLOOD COUNT 4.19 X10^6/uL (4.7-6.0); RED CELL DISTRIBUTION WIDTH 13.3 % (11.6-16.5); WHITE BLOOD COUNT 7.4 X10^3/uL (3.6-10.0)
[2022-04-14 06:31] LABS: ALANINE AMINOTRANSFERASE 26 Units/L (12-78); ALBUMIN 3.4 g/dL (3.4-5.0); ALKALINE PHOSPHATASE 75 Units/L (46-116); ASPARTATE AMINO TRANSFERASE 28 Units/L (15-37); BLOOD UREA NITROGEN 20 mg/dL (7-18); CALCIUM 8.1 mg/dL (8.5-10.1); CARBON DIOXIDE 27.5 mmol/L (21-32); CHLORIDE 104 mmol/L (98-107); CREATININE 1.78 mg/dL (0.70-1.30); SODIUM 139 mmol/L (136-145); TOTAL PROTEIN 6.7 g/dL (6.4-8.2); eGFR NON BLACK RACES 40 (>60)
[2022-04-14] MEDS ORDERED: ZESTRIL TAB 5 MG PO SCH (08:45)
[2022-04-14] MEDS: PROTONIX TAB 40 MG PO SCH (09:00)
[2022-04-14] MEDS: LOVENOX INJ 40 MG SYR SC SCH (09:02)
[2022-04-14] MEDS: SYNTHROID 137 mcg TAB PO SCH (09:03)
[2022-04-14] MEDS: HEMOCYTE-PLUS PO SCH (09:03)
[2022-04-14] MEDS: SINGULAIR TAB 10 MG PO SCH (09:05)
[2022-04-14] MEDS: CORDARONE TAB 200 MG PO SCH ×2 (09:05→20:55)
[2022-04-14] MEDS: NAMENDA TAB 10 MG PO SCH ×2 (09:06→20:54)
[2022-04-14] MEDS: ZESTRIL TAB 10 MG PO SCH ×2 (09:06→20:55)
[2022-04-14] MEDS: ASPIRIN EC 81 MG PO SCH (09:07)
[2022-04-14] MEDS: LEVSIN/MAALOX/LIDOC VISC PO SCH ×4 (09:07→20:55)
--- NOTE | 2022-04-14 11:34 | DR.H&P ---
H&P - History & Physical for Day of: H&P Date: 04/14/22 - Chief Complaint Chief Complaint: DIZZINESS, SOB, CHEST PAIN, WEAKNESS, TREMORS - History of Present Illness History of Present Illness: PRESENTED TO THE OFFICE WITH COMPLAINTS OF DIZZINESS, SHORTNESS OF BREATH, CHEST PAIN, WEAKNESS, AND INTERMITTENT TREMORS. SYMPTOMS STARTED ABOUT A WEEK AGO AND HAVE PROGRESSIVELY GOTTEN WORSE. HE REPORTS THAT HIS BLOOD PRESSURE HAS BEEN LOW AT TIMES. HE REPORTS FEELING LIKE HE WOULD PASS OUT YESTERDAY. CHEST PAIN IS DESCRIBED INTERMITTENT, PRESSURE- LIKE, AND WAS RATED A 3/10 AT THE TIME OF VISIT. HIS PMH INCLUDES CAD, HI, PACEMAKER, DEFIBRILLATORY, HYPERLIPIDEMIA, HTN, COPE, SLEEP APNEA, GERD, DM II, ANXIETY, CARDIAC STENT, AND ABDOMINAL SURGERY DUE TO PERFORATION. DECISION WAS MADE TO ADMIT PATIENT TO THE HOSPITAL FOR FURTHER EVALUATION AND TREATMENT OF NEAR SYNCOPE, DIZZINESS, SOB, ANGINA, AND GENERALIZED WEAKNESS. ON ARRIVAL TO THE HOSPITAL, HIS VITALS WERE: 97.6-71-20-96%-119/56. LABS WERE OBTAINED. WBC 7.7, RBC 4.02, HGB 12.0, HCT 34.5, PLT COUNT 105, SODIUM 136, POTASSIUM 4.2, CHLORIDE 101, BUN 30, CREATININE 2.89, GLUCOSE 99, CALCIUM 8.2, AST 29, ALT 25, ALK PHOS 75, CREATINE KINASE 151, TROPONIN 10.1, TOTAL PROTEIN 6.8, ALBUMIN 3.8. URINALYSIS OBTAINED AND WAS UNREMARKABLE. COVID-19 NEGATIVE. A CHEST XRAY WAS OBTAINED AND REVEALED: No imaging findings of acute cardiopulmonary disease. EKG REVEALED: PACED RHYTHM WITH HR 70. BRAIN CT OBTAINED AND REVEALED: No acute intracranial abnormality identified. HE WAS STARTED ON NORMAL SALINE AT 80 ML/HR, LOVENOX 40MG SC DAILY, AND HIS HOME MEDICATIONS OF AMIODARONE, ASPIRIN, LIPITOR, ARICEPT, SYNTHROID, NAMENDA, SINGULAIR, LISINOPRIL, HEMOCYTE PLUS, ZOLOFT, AND DUONEBS PRN WERE RESUMED. HE WAS ON FLOMAX FOR URINARY RETENTION AND GABAPENTIN FOR NEUROPATHY, BUT WE WILL HOLD THEM AT THIS TIME. OTHERWISE, WE WILL FOLLOW-UP WITH AM LABS AND CONTINUE TO MONITOR. TIME SPENT ON CLINICAL ASSESSMENT, REVIWING LABS AND IMAGING, DECISION MAKING, AND DOCUMENTATION GREATER THAN 75 MINUTES. - Past Medical History Past Medical History: HI, Coronary Artery Disease, Hypertension, Dyslipidemia, Diabetes, Anxiety, Hypothyroidism, GERD - Past Surgical History Surgical History: Abdominal Surgery, Angioplasty/Stents, Other - Family History Family Medical History: Hypertension - Social History Does patient currently use any type of tobacco product: No Have you used tobacco products in the last 12 months: No Type of Tobacco Use: None Does any household member use tobacco: No Alcohol Use: None Drug Use: None - Medications Home Medications: No Known Drug Allergies Allergy (Verified 04/12/22 17:11) CONTINUE taking the following medications gabapentin 300 mg capsule 2 cap PO HS 04/12/22 [History] - Review of Systems Constitutional: Weakness Eyes: No Symptoms Reported ENT: No Symptoms Reported Respiratory: Shortness of Breath Cardiovascular: Chest Pain, Light Headedness Gastrointestinal: No Symptoms Reported Genitourinary: No Symptoms Reported Musculoskeletal: No Symptoms Reported Skin: No Symptoms Reported Neurological: Weakness, Other (TREMORS ) - Physical Exam Vital Signs: Temperature 97.7 F Pulse Rate [Right Brachial] 76 Respiratory Rate 20 Blood Pressure [Right Arm] 127/77 Blood Pressure [Left Arm] 146/80 O2 Sat by Pulse Oximetry 97 Oriented: Normal Eyes: Normal Ear: Normal Nose: Normal Throat: Normal Respiratory: Clear Throughout Cardiovascular: Normal : Normal Auscultation: Bowel Sounds: Normal Palpation: Normal Tenderness: Normal Skin: Normal Musculoskeletal: Normal Psychiatric: Normal Mood Description: Calm Affect: Normal Speech Pattern: Clear - Assessment/Plan (1) Near syncope Status: Acute Plan: ADMIT, NORMAL SALINE AT 80 ML/HR, LOVENOX 40MG SC DAILY, AND HIS HOME MEDICATIONS OF AMIODARONE, ASPIRIN, LIPITOR, ARICEPT, SYNTHROID, NAMENDA, SINGULAIR, LISINOPRIL, HEMOCYTE PLUS, ZOLOFT, AND DUONEBS PRN WERE RESUMED. SERIAL CARDIAC ENZYMES AND EKGS (2) Chest pain, rule out acute myocardial infarction Status: Acute (3) Generalized weakness Status: Acute (4) Dizziness Status: Acute (5) Occasional tremors Status: Acute - Allergies Allergies/Adverse Reactions: Allergies Allergy/AdvReac Type Severity Reaction Status Date / Time No Known Drug Allergies Allergy Verified 04/12/22 17:11
--- NOTE | 2022-04-14 13:08 | PCM.PROG ---
Progress Note - Progress Note for Day of Date of Exam: 04/14/22 - Subjective Subjective: WAS ADMITTED FOR TREATMENT OF NEAR SYNCOPE, CHEST PAIN RULE OUT ACUTE AK, GENERALIZED WEAKNESS, DIZZINESS, AND OCCASIONAL TREMORS. TODAY, HE IS ALERT AND ORIENTED, LYING IN BED ON MORNING ROUNDS. HE CONTINUES WITH COMPLAINTS OF WEAKNESS, OCCASIONAL TREMORS, AND DIZZINESS AT TIMES. SYMPTOMS HAVE SLIGHTLY IMPROVED SINCE ADMISSION. HE DENIES CHEST PAIN TODAY. NURSING STAFF REPORTS THAT HIS BLOOD PRESSURE HAS BEEN ELEVATED YESTERDAY AND THROUGHOUT THE NIGHT. ON EXAMINATION, HEART IS REGULAR IN RATE AND RHYTHM. BILATERAL LUNGS ARE NOTED WITH DIMINISHED LUNG SOUNDS THROUGHOUT. ABDOMEN IS ROUND, SOFT, AND NON-TENDER WITH NORMAL BOWEL SOUNDS NOTED IN ALL QUADRANTS. NO UPPER OR LOWER EX TREMITY EDEMA NOTED. HIS VITALS THIS MORNING ARE: 97.8-70-18-98%-173/81. LABS WERE OBTAINED. WBC 7.4, RBC 4.19, HGB 12.4, HCT 35.6, PLT COUNT 115, SODIUM 139, POTASSIUM 4.6, BUN 20, CREATININE 1.78, GLUCOSE 81, CALCIUM 8.1, AST 28, ALT 26, ALK PHOS 75, TOTAL PROTEIN 6.7, ALBUMIN 3.4. CARDIAC ENZYMES HAVE BEEN WITHIN NORMAL LIMITS. NO CHANGES TO EKGs NOTED. HE IS CURRENTLY RECEIVING NORMAL SALINE AT 80 ML/HR, LOVENOX 40MG SC DAILY, AND HIS HOME MEDICATIONS OF AMIODARONE, ASPIRIN, LIPITOR, ARICEPT, SYNTHROID, NAMENDA, SINGULAIR, LISINOPRIL, HEMOCYTE PLUS, ZOLOFT, GI COCKTAIL, PROTONIX, AND DUONEBS PRN WERE RESUMED. TODAY, WE WILL INCREASE HIS LISINOPRIL TO 10MG PO BID. WE WILL DISCONTINUE HIS FLOMAX FROM HIS MEDICATION LIST THIS MAY BE CONTRIBUTING TO THE DIZZINESS. OTHERWISE, WE PLAN TO FOLLOW-UP WITH AM LABS AND CONTINUE TO MONITOR. TIME SPENT ON CLINICAL ASSESSMENT, REVIWING LABS AND IMAGING, DECISION MAKING, AND DOCUMENTATION GREATER THAN 45 MINUTES. - Past Medical Family Social History Past Med/Fam/Surg Hx: No changes since H&P Allergies: Allergies No Known Drug Allergies Allergy (Verified 04/12/22 17:11) - Review of Systems ROS: No change since H&P - Vital Signs and I&O's Vital Signs: Temperature 97.7 F Pulse Rate [Right Brachial] 76 Respiratory Rate 20 Blood Pressure [Right Arm] 127/77 Blood Pressure [Left Arm] 146/80 O2 Sat by Pulse Oximetry 97 Intake and Output: Intake & Output 04/12/22 04/13/22 04/14/22 04/15/22 11:59 11:59 11:59 11:59 Intake Total 1300 / 1300 3132 / 3132 Output Total 1080 / 1080 2500 / 2500 Balance 220 / 220 632 / 632 - Physical Exam Oriented: Normal Eyes: Normal Ear: Normal Nose: Normal Throat: Normal Respiratory: Generalized, Diminished Cardiovascular: Normal : Normal Auscultation: Bowel Sounds: Normal Palpation: Normal Tenderness: Normal Skin: Normal Musculoskeletal: Normal Psychiatric: Normal Mood Description: Calm Affect: Normal Speech Pattern: Clear - Laboratory and Diagnostics Result Diagrams: 04/14/22 05:04/14/22 05:22 Labs: Laboratory WBC 7.4 X10^3/uL (3.6-10.0) 04/14/22 05:22 RBC 4.19 X10^6/uL (4.7-6.0) L 04/14/22 05:22 Hgb 12.4 g/dL (13.5-18.0) L 04/14/22 05:22 Hct 35.6 % (42.0-54.0) L 04/14/22 05:22 MCV 85.0 fL (80.0-100.0) 04/14/22 05:22 MCH 29.7 pg (27.0-34.0) 04/14/22 05:22 MCHC 34.9 g/dL (33.0-35.0) 04/14/22 05:22 RDW 13.3 % (11.6-16.5) 04/14/22 05:22 Plt Count 115 X10^3/uL (150.0-450.0) L 04/14/22 05:22 MPV 9.3 fL (7.4-11.0) 04/14/22 05:22 Neut % (Auto) 64.3 % (42.0-75.0) 04/14/22 05:22 Lymph % (Auto) 20.3 % (21.0-51.0) L 04/14/22 05:22 [place] % (Auto) 8.4 % (0.0-13.0) 04/14/22 05:22 Eos % (Auto) 5.8 % (0.9-2.9) H 04/14/22 05:22 Baso % (Auto) 1.2 % (0.2-1.0) H 04/14/22 05:22 Neut # (Auto) 4.8 x10^3/uL (2.2-4.8) 04/14/22 05:22 Lymph # (Auto) 1.5 X10^3/uL (1.3-2.9) 04/14/22 05:22 [place] # (Auto) 0.6 x10^3/uL (0.3-0.8) 04/14/22 05:22 Eos # (Auto) 0.4 x10^3/uL (0.0-0.2) H 04/14/22 05:22 Baso # (Auto) 0.1 X10^3/uL (0.0-0.1) 04/14/22 05:22 Absolute Nucleated RBC 0.0 /100WBC 04/14/22 05:22 Sodium 139 mmol/L (136-145) 04/14/22 05:22 Corrected Sodium TNP 04/14/22 05:22 Potassium 4.6 mmol/L (3.5-5.1) 04/14/22 05:22 Chloride 104 mmol/L (98-107) 04/14/22 05:22 Carbon Dioxide 27.5 mmol/L (21-32) 04/14/22 05:22 BUN 20 mg/dL (7-18) H 04/14/22 05:22 Creatinine 1.78 mg/dL (0.70-1.30) H 04/14/22 05:22 Est GFR (MDRD) Af Amer 48 (>60) L 04/14/22 05:22 Est GFR (MDRD) Non-Af 40 (>60) L 04/14/22 05:22 Glucose 81 mg/dL (65-99) 04/14/22 05:22 POC Glucose (mg/dL) 79 mg/dL (65-99) 04/14/22 12:01 Calcium 8.1 mg/dL (8.5-10.1) L 04/14/22 05:22 Corrected Calcium TNP 04/14/22 05:22 Total Bilirubin 0.60 mg/dL (0.2-1.0) 04/14/22 05:22 AST 28 Units/L (15-37) 04/14/22 05:22 ALT 26 Units/L (12-78) 04/14/22 05:22 Alkaline Phosphatase 75 Units/L (46-116) 04/14/22 05:22 Creatine Kinase 130 Units/L (39-308) 04/13/22 04:40 Troponin I High Sens 11.1 ng/L (4.0-60.0) 04/13/22 04:40 Total Protein 6.7 g/dL (6.4-8.2) 04/14/22 05:22 Albumin 3.4 g/dL (3.4-5.0) 04/14/22 05: Globulin 3.3 g/dL (2.5-4.5) 04/14/22 05:22 Albumin/Globulin Ratio 1.0 Ratio (1.1-2.1) L 04/14/22 05:22 Specimen Type Clean catch urine 04/12/22 18:55 Urine Color Yellow (YELLOW) 04/12/22 18:55 Urine Appearance Clear (CLEAR) 04/12/22 18:55 Urine pH 5.0 (5.0 - 8.0) 04/12/22 18:55 Ur Specific [place] 1.020 (1.000-1.030) 04/12/22 18:55 Urine Protein 1+ (NEGATIVE) 04/12/22 18:55 Urine Glucose (UA) Negative (NEGATIVE) 04/12/22 18:55 Urine Ketones Negative (NEGATIVE) 04/12/22 18:55 Urine Blood Negative (NEGATIVE) 04/12/22 18:55 Urine Nitrite Negative (NEGATIVE) 04/12/22 18:55 Urine Bilirubin Negative (NEGATIVE) 04/12/22 18:55 Urine Urobilinogen Normal (NORMAL) 04/12/22 18:55 Ur Leukocyte Esterase Negative (NEGATIVE) 04/12/22 18:55 Urine RBC 0-2 /HPF (0-3) 04/12/22 18:55 Urine WBC 0-2 /HPF (0-5) 04/12/22 18:55 Ur Squamous Epith Cells Few /HPF (NEGATIVE) 04/12/22 18:55 Amorphous Sediment 3+ /HPF (NEGATIVE) 04/12/22 18:55 Urine Bacteria Trace /HPF (NEGATIVE) 04/12/22 18:55 Urine Mucus Few /HPF (NEGATIVE) 04/12/22 18:55 Ur Culture Indicated? No/not indicated 04/12/22 18:55 SARS-CoV-2 (PCR) Negative (NEGATIVE) 04/12/22 16:35 - Plan (1) Near syncope Status: Acute Plan: NORMAL SALINE AT 80 ML/HR, LOVENOX 40MG SC DAILY, AND HIS HOME MEDICATIONS OF AMIODARONE, ASPIRIN, LIPITOR, ARICEPT, SYNTHROID, NAMENDA, SINGULAIR, LISINOPRIL, HEMOCYTE PLUS, ZOLOFT, AND DUONEBS PRN WERE RESUMED. (2) Chest pain, rule out acute myocardial infarction Status: Acute (3) Generalized weakness Status: Acute (4) Dizziness Status: Acute (5) Occasional tremors Status: Acute
[2022-04-14] MEDS: ZOLOFT PO SCH (20:54)
[2022-04-14] MEDS: LIPITOR TAB 40 MG PO SCH (20:55)
[2022-04-14] MEDS: ARICEPT TAB 10 MG PO SCH (20:55)
[2022-04-15 05:31] LABS: BASOPHILS # (AUTO) 0.1 X10^3/uL (0.0-0.1); BASOPHILS % (AUTO) 1.1 % (0.2-1.0); EOSINOPHILS # (AUTO) 0.3 x10^3/uL (0.0-0.2); EOSINOPHILS % (AUTO) 3.7 % (0.9-2.9); HEMATOCRIT 38.8 % (42.0-54.0); HEMOGLOBIN 13.3 g/dL (13.5-18.0); LYMPHOCYTES # (AUTO) 2.2 X10^3/uL (1.3-2.9); LYMPHOCYTES % (AUTO) 23.9 % (21.0-51.0); MEAN CORPUSCULAR HEMOGLOBIN 29.2 pg (27.0-34.0); MEAN CORPUSCULAR HGB CONC 34.3 g/dL (33.0-35.0); MEAN CORPUSCULAR VOLUME 85.3 fL (80.0-100.0); MEAN PLATELET VOLUME 9.2 fL (7.4-11.0); MONOCYTES # (AUTO) 0.7 x10^3/uL (0.3-0.8); MONOCYTES % (AUTO) 7.8 % (0.0-13.0); NEUTROPHILS # (AUTO) 5.8 x10^3/uL (2.2-4.8); NEUTROPHILS % (AUTO) 63.5 % (42.0-75.0); RED BLOOD COUNT 4.55 X10^6/uL (4.7-6.0); RED CELL DISTRIBUTION WIDTH 13.2 % (11.6-16.5); WHITE BLOOD COUNT 9.2 X10^3/uL (3.6-10.0)
[2022-04-15 05:41] LABS: ALANINE AMINOTRANSFERASE 26 Units/L (12-78); ALBUMIN 3.8 g/dL (3.4-5.0); ALKALINE PHOSPHATASE 83 Units/L (46-116); ASPARTATE AMINO TRANSFERASE 28 Units/L (15-37); BLOOD UREA NITROGEN 16 mg/dL (7-18); CALCIUM 8.3 mg/dL (8.5-10.1); CARBON DIOXIDE 28.6 mmol/L (21-32); CHLORIDE 103 mmol/L (98-107); CREATININE 1.68 mg/dL (0.70-1.30); SODIUM 139 mmol/L (136-145); TOTAL PROTEIN 7.3 g/dL (6.4-8.2); eGFR NON BLACK RACES 42 (>60)
[2022-04-15] MEDS: LEVSIN/MAALOX/LIDOC VISC PO SCH (08:00)
[2022-04-15] MEDS: ZESTRIL TAB 10 MG PO SCH (09:51)
[2022-04-15] MEDS: ASPIRIN EC 81 MG PO SCH (09:51)
[2022-04-15] MEDS: HEMOCYTE-PLUS PO SCH (09:51)
[2022-04-15] MEDS: SYNTHROID 137 mcg TAB PO SCH (09:51)
[2022-04-15] MEDS: SINGULAIR TAB 10 MG PO SCH (09:52)
[2022-04-15] MEDS: CORDARONE TAB 200 MG PO SCH (09:52)
[2022-04-15] MEDS: PROTONIX TAB 40 MG PO SCH (09:52)
[2022-04-15] MEDS: NAMENDA TAB 10 MG PO SCH (09:52)
[2022-04-15] MEDS: LOVENOX INJ 40 MG SYR SC SCH (09:55)
[2022-04-15] MEDS: NS 1,000 ML IV 1,000 ML IV SCH (12:30)
[2022-04-15 13:23] VITALS: BP 163/89
== END 2022-04-15 13:00 | disposition home health service (06) ==
LOC: MED/SURG
PROVIDERS: ADMIT Internal Medicine; ATTEND Internal Medicine
DX: R26.89 Other abnormalities of gait and mobility; Z20.822 Contact with and (suspected) exposure to COVID-19; I95.89 Other hypotension; R53.1 Weakness; R06.02 Shortness of breath; R25.1 Tremor, unspecified; R94.31 Abnormal electrocardiogram [ECG] [EKG]; R55 Syncope and collapse; Z95.0 Presence of cardiac pacemaker; E03.8 Other specified hypothyroidism; R07.89 Other chest pain; I20.9 Angina pectoris, unspecified; R42 Dizziness and giddiness

== ENCOUNTER 2023-12-10 13:32 | Observation (INO) ==
[2023-12-10] MEDS ORDERED: MORPHINE SULFATE INJ 2 MG INJ IVP PRN (18:58)
[2023-12-10 20:03] VITALS: BMI 24.0
[2023-12-10 20:10] LABS: HEMOGLOBIN 12.5 g/dL (13.5-18.0); MEAN CORPUSCULAR HEMOGLOBIN 29.9 pg (27.0-34.0)
[2023-12-10 20:13] LABS: BASOPHILS # (AUTO) 0.1 X10^3/uL (0.0-0.1); EOSINOPHILS # (AUTO) 0.3 x10^3/uL (0.0-0.2); EOSINOPHILS % (AUTO) 3.5 % (0.9-2.9); HEMATOCRIT 36.9 % (42.0-54.0); MEAN CORPUSCULAR HGB CONC 33.9 g/dL (33.0-35.0); MEAN CORPUSCULAR VOLUME 88.3 fL (80.0-100.0); MEAN PLATELET VOLUME 9.4 fL (7.4-11.0); MONOCYTES # (AUTO) 0.8 x10^3/uL (0.3-0.8); MONOCYTES % (AUTO) 9.7 % (0.0-13.0); NEUTROPHILS % (AUTO) 73.8 % (42.0-75.0); PLATELET COUNT 126 X10^3/uL (150.0-450.0); RED BLOOD COUNT 4.18 X10^6/uL (4.7-6.0); WHITE BLOOD COUNT 8.1 X10^3/uL (3.6-10.0)
[2023-12-10 20:14] LABS: ALBUMIN 3.1 g/dL (3.4-5.0); CALCIUM 8.5 mg/dL (8.5-10.1); CARBON DIOXIDE 30.9 mmol/L (21-32); COR CA(FOR HYPOALB) 9.2 mg/dL (8.5-10.1); CREATININE 1.66 mg/dL (0.70-1.30); POTASSIUM 3.9 mmol/L (3.5-5.1); TOTAL PROTEIN 6.8 g/dL (6.4-8.2)
[2023-12-11] MEDS: NORCO 7.5/325 MG TAB PO PRN (00:30)
[2023-12-11 05:30] LABS: BASOPHILS # (AUTO) 0.1 X10^3/uL (0.0-0.1); BASOPHILS % (AUTO) 1.2 % (0.2-1.0); EOSINOPHILS # (AUTO) 0.3 x10^3/uL (0.0-0.2); EOSINOPHILS % (AUTO) 4.3 % (0.9-2.9); HEMATOCRIT 36.3 % (42.0-54.0); HEMOGLOBIN 12.1 g/dL (13.5-18.0); LYMPHOCYTES # (AUTO) 1.1 X10^3/uL (1.3-2.9); LYMPHOCYTES % (AUTO) 15.4 % (21.0-51.0); MEAN CORPUSCULAR HEMOGLOBIN 29.8 pg (27.0-34.0); MEAN CORPUSCULAR HGB CONC 33.4 g/dL (33.0-35.0); MEAN CORPUSCULAR VOLUME 89.2 fL (80.0-100.0); MEAN PLATELET VOLUME 9.5 fL (7.4-11.0); MONOCYTES # (AUTO) 0.7 x10^3/uL (0.3-0.8); MONOCYTES % (AUTO) 9.1 % (0.0-13.0); NEUTROPHILS # (AUTO) 5.2 x10^3/uL (2.2-4.8); PLATELET COUNT 125 X10^3/uL (150.0-450.0); RED BLOOD COUNT 4.07 X10^6/uL (4.7-6.0); RED CELL DISTRIBUTION WIDTH 13.6 % (11.6-16.5); WHITE BLOOD COUNT 7.4 X10^3/uL (3.6-10.0)
[2023-12-11 05:46] LABS: ALANINE AMINOTRANSFERASE 17 Units/L (12-78); ALKALINE PHOSPHATASE 76 Units/L (46-116); ASPARTATE AMINO TRANSFERASE 25 Units/L (15-37); BLOOD UREA NITROGEN 25 mg/dL (7-18); CALCIUM 8.6 mg/dL (8.5-10.1); CARBON DIOXIDE 31.6 mmol/L (21-32); CHLORIDE 103 mmol/L (98-107); COR CA(FOR HYPOALB) 9.4 mg/dL (8.5-10.1); GLUCOSE 93 mg/dL (65-99); POTASSIUM 4.6 mmol/L (3.5-5.1); SODIUM 140 mmol/L (136-145); TOTAL PROTEIN 6.6 g/dL (6.4-8.2); eGFR NON BLACK RACES 45 (>60)
[2023-12-11] MEDS ORDERED: CONSULT PHARMACY - POTASSIUM & MAGNESIUM XX SCH (08:00)
[2023-12-11] MEDS: MAG-OX TAB PO SCH (08:37)
[2023-12-11] MEDS: LOVENOX INJ 40 MG SYR SC SCH (11:04)
--- NOTE | 2023-12-11 16:46 | DR.H&P ---
H&P History & Physical for Day of: H&P Date: 12/11/23 Chief Complaint Chief Complaint: Intractable back pain Allergies Allergies Allergy/AdvReac Type Severity Reaction Status Date / Time No Known Drug Allergies Allergy Verified 12/09/23 13:05 History of Present Illness History of Present Illness: This is a pleasant 78-year-old white male well-known to me. I received a call from one of the patient's family members who is a nurse practitioner on Monday, 10 Dec 2023. She told me that the patient fallen Monday and ended up going to the back and emergency department and was found to have L1-L2 compression fracture. He was subsequently transferred to [facility] they accepted him as they were planning on operated on him. Unfortunately, cardiology never cleared him for surgery, and they recommended pain control and physical therapy at this time. They would not keep the patient until today and in order to transfer the patient to [facility] for swing bed admission as a discharge the patient yesterday because he was ambulating on his own. However by the time patient got back to [place] he is in such severe pain that his cannot take care of him given her feeble medical condition so I directed admitted the patient to [facility]. Will plan on keeping him inpatient long enough until we can get him changed over to swing bed and in the meantime we will do pain control and physical therapy. After swing bed admission if the patient's family wishes him to go to [facility] for inpatient rehab we will plan on doing that as well. We will do oral hydrocodone [id number] that is scheduled and as needed morphine sulfate for pain control. Past Medical History Past Medical History: Anxiety, Coronary Artery Disease, Diabetes, Dyslipidemia, GERD, Hypertension, Hypothyroidism and IA Past Surgical History Surgical History: Abdominal Surgery, Angioplasty/Stents and Other Family History Family Medical History: Diabetes Mellitus, IA and Hypertension Social History Does patient currently use any type of tobacco product: No Type of Tobacco Use: None Does any household member use tobacco: No Alcohol Use: None Drug Use: None Medications Home Medications: Home Medications Medication Instructions Recorded Confirmed Type montelukast 10 mg tablet 10 mg PO DAILY 04/07/19 12/10/23 History (Singulair) memantine ER 28 mg-donepezil 10 mg 1 cap PO DAILY 12/09/23 12/11/23 History capsule sprinkle,ext.release 24 hr (Namzaric) rivastigmine tartrate 3 mg capsule 3 mg PO DAILY 12/09/23 12/11/23 History gabapentin 300 mg capsule 300 mg PO TID 12/11/23 12/11/23 History memantine 10 mg tablet 10 mg PO BID 12/11/23 12/11/23 History Labs 12/11/23 05:03 12/11/23 05:03 Labs: Laboratory WBC 7.4 X10^3/uL (3.6-10.0) 12/11/23 05:03 RBC 4.07 X10^6/uL (4.7-6.0) L 12/11/23 05:03 Hgb 12.1 g/dL (13.5-18.0) L 12/11/23 05:03 Hct 36.3 % (42.0-54.0) L 12/11/23 05:03 MCV 89.2 fL (80.0-100.0) 12/11/23 05:03 MCH 29.8 pg (27.0-34.0) 12/11/23 05:03 MCHC 33.4 g/dL (33.0-35.0) 12/11/23 05:03 RDW 13.6 % (11.6-16.5) 12/11/23 05:03 Plt Count 125 X10^3/uL (150.0-450.0) L 12/11/23 05:03 MPV 9.5 fL (7.4-11.0) 12/11/23 05:03 Neut % (Auto) 70.0 % (42.0-75.0) 12/11/23 05:03 Lymph % (Auto) 15.4 % (21.0-51.0) L 12/11/23 05:03 [place] % (Auto) 9.1 % (0.0-13.0) 12/11/23 05:03 Eos % (Auto) 4.3 % (0.9-2.9) H 12/11/23 05:03 Baso % (Auto) 1.2 % (0.2-1.0) H 12/11/23 05:03 Neut # (Auto) 5.2 x10^3/uL (2.2-4.8) H 12/11/23 05:03 Lymph # (Auto) 1.1 X10^3/uL (1.3-2.9) L 12/11/23 05:03 [place] # (Auto) 0.7 x10^3/uL (0.3-0.8) 12/11/23 05:03 Eos # (Auto) 0.3 x10^3/uL (0.0-0.2) H 12/11/23 05:03 Baso # (Auto) 0.1 X10^3/uL (0.0-0.1) 12/11/23 05:03 Absolute Nucleated RBC 0.0 /100WBC 12/11/23 05:03 Sodium 140 mmol/L (136-145) 12/11/23 05:03 Corrected Sodium TNP 12/11/23 05:03 Potassium 4.6 mmol/L (3.5-5.1) 12/11/23 05:03 Chloride 103 mmol/L (98-107) 12/11/23 05:03 Carbon Dioxide 31.6 mmol/L (21-32) 12/11/23 05:03 BUN 25 mg/dL (7-18) H 12/11/23 05:03 Creatinine 1.60 mg/dL (0.70-1.30) H 12/11/23 05:03 Est GFR (MDRD) Af Amer 54 (>60) L 12/11/23 05:03 Est GFR (MDRD) Non-Af 45 (>60) L 12/11/23 05:03 Glucose 93 mg/dL (65-99) 12/11/23 05:03 Calcium 8.6 mg/dL (8.5-10.1) 12/11/23 05:03 Corrected Calcium 9.4 mg/dL (8.5-10.1) 12/11/23 05:03 Magnesium 1.8 mg/dL (2.0-2.9) L 12/11/23 05:03 Total Bilirubin 0.60 mg/dL (0.2-1.0) 12/11/23 05:03 AST 25 Units/L (15-37) 12/11/23 05:03 ALT 17 Units/L (12-78) 12/11/23 05:03 Alkaline Phosphatase 76 Units/L (46-116) 12/11/23 05:03 Total Protein 6.6 g/dL (6.4-8.2) 12/11/23 05:03 Albumin 3.0 g/dL (3.4-5.0) L 12/11/23 05:03 Globulin 3.6 g/dL (2.5-4.5) 12/11/23 05:03 Albumin/Globulin Ratio 0.8 Ratio (1.1-2.1) L 12/11/23 05:03 Review of Systems Constitutional: No Symptoms Reported Eyes: No Symptoms Reported ENT: No Symptoms Reported Respiratory: No Symptoms Reported Cardiovascular: No Symptoms Reported Gastrointestinal: No Symptoms Reported Genitourinary: No Symptoms Reported Musculoskeletal: Back Pain Skin: No Symptoms Reported Neurological: Weakness Physical Exam Vital Signs: Vital Signs Temperature 97.4 F Pulse Rate [Left Radial] 68 Respiratory Rate 20 Respiratory Rate 18 Respiratory Rate 20 Blood Pressure [Left Arm] 157/83 O2 Sat by Pulse Oximetry 98 Oriented: Normal Eyes: Normal Ear: Normal Nose: Normal Throat: Normal Respiratory: Clear Throughout Cardiovascular: Normal Auscultation: Bowel Sounds: Normal Palpation: Normal Tenderness: Normal Skin: Normal Musculoskeletal: Back:Lumbar Psychiatric: Anxiety Mood Description: Calm Affect: Normal Speech Pattern: Clear and Appropriate Assessment/Plan (1) Fracture of lumbar spine: Qualifiers: Encounter type: initial encounter Fracture morphology: other fracture Fracture type: closed Lumbar vertebra fracture level: L1 Qualified Code(s): S32.018A - Other fracture of first lumbar vertebra, initial encounter for closed fracture Status: Acute Plan: Pain control and we will start physical therapy (2) Intractable back pain: Status: Acute Plan: Schedule hydrocodone 7.5/325 mg every 6 hours and morphine sulfate as needed. (3) Hypothyroidism: Status: Acute Plan: Continue levothyroxine. (4) Hypertension: Qualifiers: Hypertension type: primary hypertension Qualified Code(s): I10 - Essential (primary) hypertension Status: Acute Plan: Monitor blood pressure daily and treat accordingly. Review H&P Reviewed: Yes
[2023-12-12 06:38] LABS: BASOPHILS # (AUTO) 0.1 X10^3/uL (0.0-0.1); BASOPHILS % (AUTO) 1.2 % (0.2-1.0); EOSINOPHILS # (AUTO) 0.2 x10^3/uL (0.0-0.2); EOSINOPHILS % (AUTO) 3.4 % (0.9-2.9); HEMATOCRIT 36.6 % (42.0-54.0); HEMOGLOBIN 12.5 g/dL (13.5-18.0); LYMPHOCYTES # (AUTO) 1.1 X10^3/uL (1.3-2.9); MEAN CORPUSCULAR HEMOGLOBIN 30.2 pg (27.0-34.0); MEAN CORPUSCULAR HGB CONC 34.1 g/dL (33.0-35.0); MEAN CORPUSCULAR VOLUME 88.6 fL (80.0-100.0); MEAN PLATELET VOLUME 9.2 fL (7.4-11.0); MONOCYTES # (AUTO) 0.5 x10^3/uL (0.3-0.8); MONOCYTES % (AUTO) 7.4 % (0.0-13.0); NEUTROPHILS # (AUTO) 5.2 x10^3/uL (2.2-4.8); PLATELET COUNT 121 X10^3/uL (150.0-450.0); RED BLOOD COUNT 4.13 X10^6/uL (4.7-6.0); RED CELL DISTRIBUTION WIDTH 13.7 % (11.6-16.5); WHITE BLOOD COUNT 7.1 X10^3/uL (3.6-10.0)
[2023-12-12 06:49] LABS: ALANINE AMINOTRANSFERASE 18 Units/L (12-78); ALBUMIN 3.2 g/dL (3.4-5.0); ALKALINE PHOSPHATASE 73 Units/L (46-116); ASPARTATE AMINO TRANSFERASE 24 Units/L (15-37); BLOOD UREA NITROGEN 23 mg/dL (7-18); CALCIUM 8.5 mg/dL (8.5-10.1); CARBON DIOXIDE 31.9 mmol/L (21-32); CHLORIDE 105 mmol/L (98-107); COR CA(FOR HYPOALB) 9.1 mg/dL (8.5-10.1); GLUCOSE 96 mg/dL (65-99); MAGNESIUM 1.8 mg/dL (2.0-2.9); POTASSIUM 4.4 mmol/L (3.5-5.1); SODIUM 141 mmol/L (136-145); TOTAL PROTEIN 6.5 g/dL (6.4-8.2); eGFR NON BLACK RACES 52 (>60)
[2023-12-12] MEDS ORDERED: CONSULT PHARMACY - POTASSIUM & MAGNESIUM XX SCH (08:00)
[2023-12-12] MEDS: COZAAR PO SCH (08:33)
[2023-12-12] MEDS: EXELON PO SCH (08:33)
[2023-12-12] MEDS: CORDARONE TAB 200 MG PO SCH (08:33)
[2023-12-12] MEDS: SINGULAIR TAB 10 MG PO SCH (08:33)
[2023-12-12] MEDS: MAG-OX TAB PO ONE (08:34)
[2023-12-12] MEDS: PROTONIX TAB 40 MG PO SCH (08:34)
[2023-12-12] MEDS: SYNTHROID 137 mcg TAB PO SCH (08:34)
[2023-12-12] MEDS: NAMENDA TAB 10 MG PO SCH (08:34)
[2023-12-12] MEDS: NEURONTIN CAP 300 MG PO SCH (14:13)
--- NOTE | 2023-12-12 16:17 | PCM.PROG ---
Progress Note Progress Note for Day of Date of Exam: 12/12/23 Subjective Subjective: The patient is alert and awake this morning. He looks comfortable as his pain is controlled at this time. We found out today that the patient's is not going be able to drive out of town to see him out of the fpc we were considering putting him in in [place], [place]. Because of that the patient's daughter has elected for the patient to go home with her. We will arrange for them to have a hospital bed, wheelchair and the patient's family is another family member who has elected wheelchair they can try to borrow as well. We will plan on doing home physical therapy and continue inpatient physical therapy at this time. Will plan on discharge the patient later in the week. His blood pressure is also been elevated so I am going to start him on losartan 50 mg p.o. daily today. Past Medical Family Social History Allergies: Allergies No Known Drug Allergies Allergy (Verified 12/09/23 13:05) Review of Systems ROS: No change since H&P Vital Signs and I&O's Vital Signs: Vital Signs Temperature 97.4 F Pulse Rate [Left Radial] 70 Respiratory Rate 18 Blood Pressure [Left Arm] 177/90 O2 Sat by Pulse Oximetry 95 Intake and Output: Intake & Output 12/10/23 12/11/23 12/12/23 12/13/23 11:59 11:59 11:59 11:59 Intake Total 285 / 285 1070 / 1070 Output Total 200 / 200 650 / 650 Balance 85 / 85 420 / 420 Physical Exam Oriented: Normal Eyes: Normal Ear: Normal Nose: Normal Throat: Normal Cardiovascular: Normal Auscultation: Bowel Sounds: Normal Tenderness: Normal Skin: Normal Musculoskeletal: Back:Lumbar Psychiatric: Anxiety Mood Description: Calm Affect: Normal Speech Pattern: Clear and Appropriate Laboratory and Diagnostics 12/12/23 05:45 12/12/23 05:45 Labs: Laboratory WBC 7.1 X10^3/uL (3.6-10.0) 12/12/23 05:45 RBC 4.13 X10^6/uL (4.7-6.0) L 12/12/23 05:45 Hgb 12.5 g/dL (13.5-18.0) L 12/12/23 05:45 Hct 36.6 % (42.0-54.0) L 12/12/23 05:45 MCV 88.6 fL (80.0-100.0) 12/12/23 05:45 MCH 30.2 pg (27.0-34.0) 12/12/23 05:45 MCHC 34.1 g/dL (33.0-35.0) 12/12/23 05:45 RDW 13.7 % (11.6-16.5) 12/12/23 05:45 Plt Count 121 X10^3/uL (150.0-450.0) L 12/12/23 05:45 MPV 9.2 fL (7.4-11.0) 12/12/23 05:45 Neut % (Auto) 73.0 % (42.0-75.0) 12/12/23 05:45 Lymph % (Auto) 15.0 % (21.0-51.0) L 12/12/23 05:45 [place] % (Auto) 7.4 % (0.0-13.0) 12/12/23 05:45 Eos % (Auto) 3.4 % (0.9-2.9) H 12/12/23 05:45 Baso % (Auto) 1.2 % (0.2-1.0) H 12/12/23 05:45 Neut # (Auto) 5.2 x10^3/uL (2.2-4.8) H 12/12/23 05:45 Lymph # (Auto) 1.1 X10^3/uL (1.3-2.9) L 12/12/23 05:45 [place] # (Auto) 0.5 x10^3/uL (0.3-0.8) 12/12/23 05:45 Eos # (Auto) 0.2 x10^3/uL (0.0-0.2) 12/12/23 05:45 Baso # (Auto) 0.1 X10^3/uL (0.0-0.1) 12/12/23 05:45 Absolute Nucleated RBC 0.1 /100WBC 12/12/23 05:45 Sodium 141 mmol/L (136-145) 12/12/23 05:45 Corrected Sodium TNP 12/12/23 05:45 Potassium 4.4 mmol/L (3.5-5.1) 12/12/23 05:45 Chloride 105 mmol/L (98-107) 12/12/23 05:45 Carbon Dioxide 31.9 mmol/L (21-32) 12/12/23 05:45 BUN 23 mg/dL (7-18) H 12/12/23 05:45 Creatinine 1.40 mg/dL (0.70-1.30) H 12/12/23 05:45 Est GFR (MDRD) Af Amer > 60 (>60) 12/12/23 05:45 Est GFR (MDRD) Non-Af 52 (>60) L 12/12/23 05:45 Glucose 96 mg/dL (65-99) 12/12/23 05:45 Calcium 8.5 mg/dL (8.5-10.1) 12/12/23 05:45 Corrected Calcium 9.1 mg/dL (8.5-10.1) 12/12/23 05:45 Magnesium 1.8 mg/dL (2.0-2.9) L 12/12/23 05:45 Total Bilirubin 0.50 mg/dL (0.2-1.0) 12/12/23 05:45 AST 24 Units/L (15-37) 12/12/23 05:45 ALT 18 Units/L (12-78) 12/12/23 05:45 Alkaline Phosphatase 73 Units/L (46-116) 12/12/23 05:45 Total Protein 6.5 g/dL (6.4-8.2) 12/12/23 05:45 Albumin 3.2 g/dL (3.4-5.0) L 12/12/23 05:45 Globulin 3.3 g/dL (2.5-4.5) 12/12/23 05:45 Albumin/Globulin Ratio 1.0 Ratio (1.1-2.1) L 12/12/23 05:45 Plan (1) Fracture of lumbar spine: Status: Acute Qualifiers: Encounter type: initial encounter Fracture morphology: other fracture Fracture type: closed Lumbar vertebra fracture level: L1 Qualified Code(s): S32.018A - Other fracture of first lumbar vertebra, initial encounter for closed fracture Plan: Pain control and we will start physical therapy (2) Intractable back pain: Status: Acute Plan: Schedule hydrocodone 7.5/325 mg every 6 hours and morphine sulfate as needed. (3) Hypothyroidism: Status: Acute Plan: Continue levothyroxine. (4) Hypertension: Status: Acute Qualifiers: Hypertension type: primary hypertension Qualified Code(s): I10 - Essential (primary) hypertension Plan: Monitor blood pressure daily and treat accordingly. (5) Hypomagnesemia: Status: Acute Plan: Replace magnesium with magnesium oxide.
[2023-12-12] MEDS: ZOLOFT PO SCH (20:11)
[2023-12-12] MEDS: LIPITOR TAB 40 MG PO SCH (20:11)
[2023-12-13 05:31] LABS: BASOPHILS # (AUTO) 0.1 X10^3/uL (0.0-0.1); BASOPHILS % (AUTO) 1.1 % (0.2-1.0); EOSINOPHILS # (AUTO) 0.3 x10^3/uL (0.0-0.2); EOSINOPHILS % (AUTO) 3.3 % (0.9-2.9); HEMATOCRIT 37.3 % (42.0-54.0); HEMOGLOBIN 12.8 g/dL (13.5-18.0); LYMPHOCYTES # (AUTO) 1.3 X10^3/uL (1.3-2.9); LYMPHOCYTES % (AUTO) 16.4 % (21.0-51.0); MEAN CORPUSCULAR HEMOGLOBIN 30.1 pg (27.0-34.0); MEAN CORPUSCULAR HGB CONC 34.4 g/dL (33.0-35.0); MEAN CORPUSCULAR VOLUME 87.7 fL (80.0-100.0); MEAN PLATELET VOLUME 9.3 fL (7.4-11.0); MONOCYTES # (AUTO) 0.6 x10^3/uL (0.3-0.8); NEUTROPHILS # (AUTO) 5.6 x10^3/uL (2.2-4.8); NEUTROPHILS % (AUTO) 71.2 % (42.0-75.0); PLATELET COUNT 127 X10^3/uL (150.0-450.0); RED BLOOD COUNT 4.26 X10^6/uL (4.7-6.0); RED CELL DISTRIBUTION WIDTH 13.8 % (11.6-16.5); WHITE BLOOD COUNT 7.9 X10^3/uL (3.6-10.0)
[2023-12-13 05:34] LABS: ALANINE AMINOTRANSFERASE 19 Units/L (12-78); ALBUMIN 3.3 g/dL (3.4-5.0); ALKALINE PHOSPHATASE 77 Units/L (46-116); ASPARTATE AMINO TRANSFERASE 22 Units/L (15-37); BLOOD UREA NITROGEN 18 mg/dL (7-18); CALCIUM 8.6 mg/dL (8.5-10.1); CARBON DIOXIDE 33.1 mmol/L (21-32); CHLORIDE 105 mmol/L (98-107); COR CA(FOR HYPOALB) 9.2 mg/dL (8.5-10.1); CREATININE 1.37 mg/dL (0.70-1.30); GLUCOSE 92 mg/dL (65-99); MAGNESIUM 1.9 mg/dL (2.0-2.9); POTASSIUM 4.5 mmol/L (3.5-5.1); SODIUM 142 mmol/L (136-145); TOTAL PROTEIN 6.8 g/dL (6.4-8.2); eGFR NON BLACK RACES 53 (>60)
[2023-12-13] MEDS ORDERED: CONSULT PHARMACY - POTASSIUM & MAGNESIUM XX SCH (07:00)
[2023-12-13] MEDS: MAG-OX TAB PO SCH (08:49)
[2023-12-13] MEDS: COZAAR PO ONE (10:15)
[2023-12-14 05:34] LABS: BASOPHILS # (AUTO) 0.1 X10^3/uL (0.0-0.1); BASOPHILS % (AUTO) 1.5 % (0.2-1.0); EOSINOPHILS # (AUTO) 0.3 x10^3/uL (0.0-0.2); EOSINOPHILS % (AUTO) 4.5 % (0.9-2.9); HEMATOCRIT 37.4 % (42.0-54.0); HEMOGLOBIN 12.5 g/dL (13.5-18.0); LYMPHOCYTES # (AUTO) 1.4 X10^3/uL (1.3-2.9); LYMPHOCYTES % (AUTO) 18.9 % (21.0-51.0); MEAN CORPUSCULAR HGB CONC 33.5 g/dL (33.0-35.0); MEAN CORPUSCULAR VOLUME 89.4 fL (80.0-100.0); MEAN PLATELET VOLUME 9.1 fL (7.4-11.0); MONOCYTES # (AUTO) 0.6 x10^3/uL (0.3-0.8); MONOCYTES % (AUTO) 8.2 % (0.0-13.0); NEUTROPHILS # (AUTO) 4.8 x10^3/uL (2.2-4.8); NEUTROPHILS % (AUTO) 66.9 % (42.0-75.0); PLATELET COUNT 126 X10^3/uL (150.0-450.0); RED BLOOD COUNT 4.18 X10^6/uL (4.7-6.0); RED CELL DISTRIBUTION WIDTH 13.8 % (11.6-16.5); WHITE BLOOD COUNT 7.2 X10^3/uL (3.6-10.0)
[2023-12-14 05:50] LABS: ALANINE AMINOTRANSFERASE 21 Units/L (12-78); ALBUMIN 3.2 g/dL (3.4-5.0); ALKALINE PHOSPHATASE 77 Units/L (46-116); ASPARTATE AMINO TRANSFERASE 26 Units/L (15-37); BLOOD UREA NITROGEN 22 mg/dL (7-18); CALCIUM 8.4 mg/dL (8.5-10.1); CARBON DIOXIDE 32.2 mmol/L (21-32); CHLORIDE 104 mmol/L (98-107); CREATININE 1.44 mg/dL (0.70-1.30); GLUCOSE 95 mg/dL (65-99); POTASSIUM 4.3 mmol/L (3.5-5.1); SODIUM 140 mmol/L (136-145); TOTAL PROTEIN 6.6 g/dL (6.4-8.2); eGFR NON BLACK RACES 50 (>60)
[2023-12-14 08:00] VITALS: RESP 18
[2023-12-14] MEDS: COZAAR PO SCH (08:27)
[2023-12-14 12:40] VITALS: BP 145/76; PULSE 70; TEMP 97.7; O2SAT 96
== END 2023-12-14 13:45 ==
LOC: MED/SURG
PROVIDERS: ADMIT Family Medicine; ATTEND Family Medicine
DX: F41.8 Other specified anxiety disorders; E11.65 Type 2 diabetes mellitus with hyperglycemia; K21.9 Gastro-esophageal reflux disease without esophagitis; S32.018A Other fracture of first lumbar vertebra, initial encounter for closed fracture; E03.8 Other specified hypothyroidism; E78.5 Hyperlipidemia, unspecified; M54.89 Other dorsalgia; R26.89 Other abnormalities of gait and mobility; I10 Essential (primary) hypertension; E83.42 Hypomagnesemia; Z86.73 Personal history of transient ischemic attack (TIA), and cerebral infarction without residual deficits; W18.39XA Other fall on same level, initial encounter; I25.10 Atherosclerotic heart disease of native coronary artery without angina pectoris; Y92.9 Unspecified place or not applicable